=== PATIENT | male | born 1990 | race Caucasian/White ===

== ENCOUNTER 2016-11-08 22:38 | Emergency (ER) | payer OTHER, MEDICAID ==
[~2016-11-08] VITALS: Ht 188 cm; Wt 99.8 kg
[~2016-11-08 22:38] MED LIST: DM/P295L17 PO; HYDR-3326 PO; LEVO500T15 PO; METR500T PO; MULT-70 PO; OMEG500C3 PO
--- NOTE | 2016-11-08 23:18 | NUR ---
PT WALKED INTO ER C/O FLU LIKE SYMPTOMS AND SORE THROAT FOR ABOUT 1 WEEK.NOT GOING AWAY. PT IS ALERT, ORIENTED X 4, NO RESP DISTRESS NOTED OR REPORTED UPON ASSESSMENT... MD AT BEDSIDE...
--- NOTE | 2016-11-08 23:55 | NUR ---
Patient discharged to home in stable conditon. Written and verbal after care instructions given. Patient verbalizes understanding of instructions. pt walked out of ER unassisted with belongings at side...
== END 2016-11-09 00:39 | disposition home or self-care (01) ==
LOC: ER 22:40
DX: J20.9 Acute bronchitis, unspecified (principal); F10.20 Alcohol dependence, uncomplicated; Z88.6 Allergy status to analgesic agent
CPT/HCPCS: 99282; A4663

== ENCOUNTER 2016-12-23 19:49 | Emergency (ER) | payer OTHER, MEDICAID ==
[~2016-12-23] VITALS: Ht 188 cm; Wt 98.9 kg
[~2016-12-23 19:49] MED LIST changes: -LEVO500T15 PO; +LEVO500T2 PO; -MULT-70 PO; +MULT1TAB73 PO
[2016-12-23 20:30] LABS: BASOPHILS % (AUTO) 0.3 % (0.0-2.0); EOSINOPHILS # (AUTO) 0.1 K/uL (0.0-0.7); EOSINOPHILS % (AUTO) 0.5 % (0.0-7.0); HEMATOCRIT 39.2 % (40-50); HEMOGLOBIN 13.1 G/DL (14.0-18.0); LYMPHOCYTES # (AUTO) 0.4 K/UL (0.8-4.8); LYMPHOCYTES % (AUTO) 3.2 % (20.5-51.5); MEAN CORPUSCULAR HEMOGLOBIN 27.7 UUG (27.0-31.0); MEAN CORPUSCULAR HGB CONC 33 g/dL (32.0-37.0); MEAN CORPUSCULAR VOLUME 83.2 FL (82.0-92.0); MONOCYTES # (AUTO) 0.6 K/UL (0.1-1.30); MONOCYTES % (AUTO) 4.8 % (0.0-11.0); NEUTROPHILS # (AUTO) 11.3 K/UL (1.8-8.9); NEUTROPHILS % (AUTO) 91.2 % (38.5-71.5); PLATELET COUNT (AUTO) 390 K/UL (150-450); RED BLOOD CELL COUNT(AUTO) 4.71 MIL/UL (4.7-6.1); WHITE BLOOD COUNT (AUTO) 12.4 K/UL (4.0-11.2)
[2016-12-23 20:41] LABS: CREATININE 1.3 mg/dL (0.6-1.3)
[2016-12-23 20:44] LABS: BAND % (MANUAL) 15 % (0-10); LYMPHOCYTES % (MANUAL) 4 % (20-40); MONOCYTES % (MANUAL) 4 % (2-10); NEUTROPHILS % (MANUAL) 77 % (42-75)
[2016-12-23 20:47] LABS: BILIRUBIN,DIRECT 0.2 mg/dL (0.0-0.2); BILIRUBIN,TOTAL 0.8 mg/dL (0.2-1.0); TOTAL PROTEIN, SERUM 7.7 g/dL (6.4-8.2)
[2016-12-23 21:00] LABS: *BILIRUBIN,URIN NEGATIVE (NEGATIVE); *BLOOD, URINE Trace-lysed (NEGATIVE); *CLARITY,URINE CLEAR (CLEAR); *COLOR,URINE YELLOW (YELLOW); *KETONES,URINE NEGATIVE (NEGATIVE); *PROTEIN,URINE NEGATIVE (NEGATIVE); *UROBILINOGEN,URINE 0.2 E.U./dl (NORMAL); LEUKOCYTE ESTERASE ,URINE NEGATIVE (NEGATIVE); NITRITE, URINE NEGATIVE (NEGATIVE); UGLUCOSE NEGATIVE (NEGATIVE)
[2016-12-23] MEDS ORDERED: NORMAL SALINE FLUSH 10 ML DISP.SYRIN ONE (21:04)
[2016-12-23] MEDS ORDERED: IOHEXOL 300MG/ML 100 ML INFUS..BTL ONE (21:04)
[2016-12-23] MEDS ORDERED: IV NORMAL SALINE 250 ML IV ONE (21:04)
[2016-12-23 21:06] LABS: RBC,URINE 0-3 /HPF (0-3); WBC,URINE 0-3 /HPF (0-3)
--- NOTE | 2016-12-23 21:30 | NUR ---
PATIENT REFUSED TO HAVE CT. DR ROSARIO INTO SPEAK WITH PATIENT
--- NOTE | 2016-12-23 21:40 | NUR ---
PT REFUSED CT. MD ROSARIO IS AWARE
--- NOTE | 2016-12-23 22:37 | NUR ---
Patient discharged to home in stable conditon. Written and verbal after care instructions given. Patient verbalizes understanding of instructions. No further questions or concerns noted prior on leaving the ED.
[2016-12-23 22:38] VITALS: BP 108/55
== END 2016-12-23 22:39 | disposition home or self-care (01) ==
LOC: ER 19:53
DX: R50.9 Fever, unspecified (principal); K51.90 Ulcerative colitis, unspecified, without complications; F10.20 Alcohol dependence, uncomplicated; Z88.6 Allergy status to analgesic agent
CPT/HCPCS: 36415; 83690; 85025; 87040; 93005; A4663; J3490; J7030; J7050; Q9967

== ENCOUNTER 2017-04-29 01:31 | Emergency (ER) | payer MEDICAID, OTHER ==
[2017-04-29] MEDS ORDERED: KETOROLAC TROMETHAMINE 30 MG INJ ONE (03:11)
--- NOTE | 2017-04-29 03:50 | NUR ---
[facility]
--- NOTE | 2017-04-29 03:55 | NUR ---
Patient discharged to home in stable conditon. Written and verbal after care instructions given. Patient verbalizes understanding of instructions.
[2017-04-29 08:55] LABS: WHITE BLOOD COUNT (AUTO) 13.1 K/UL (4.0-11.2)
[2017-04-29 08:56] LABS: BASOPHILS % (AUTO) 1.4 % (0.0-2.0); EOSINOPHILS % (AUTO) 2.1 % (0.0-7.0); HEMATOCRIT 44.8 % (40-50); HEMOGLOBIN 14.4 G/DL (14.0-18.0); LYMPHOCYTES % (AUTO) 23.9 % (20.5-51.5); MEAN CORPUSCULAR HEMOGLOBIN 26.9 UUG (27.0-31.0); MEAN CORPUSCULAR HGB CONC 32 g/dL (32.0-37.0); MEAN CORPUSCULAR VOLUME 83.5 FL (82.0-92.0); MONOCYTES % (AUTO) 13.5 % (0.0-11.0); NEUTROPHILS # (AUTO) 7.7 K/UL (1.8-8.9); NEUTROPHILS % (AUTO) 59.1 % (38.5-71.5); PLATELET COUNT (AUTO) 434 K/UL (150-450); RED BLOOD CELL COUNT(AUTO) 5.37 MIL/UL (4.7-6.1)
[2017-04-29 08:57] LABS: BASOPHILS # (AUTO) 0.2 K/uL (0.0-8.0); EOSINOPHILS # (AUTO) 0.3 K/uL (0.0-0.7); LYMPHOCYTES # (AUTO) 3.1 K/UL (0.8-4.8); MONOCYTES # (AUTO) 1.8 K/UL (0.1-1.30)
[2017-04-29 09:04] LABS: BILIRUBIN,TOTAL 0.4 mg/dL (0.2-1.0); CREATININE 1.2 mg/dL (0.6-1.3); TOTAL PROTEIN, SERUM 8.5 g/dL (6.4-8.2)
[2017-04-29 10:07] LABS: BAND % (MANUAL) 3 % (0-10); EOSINOPHILS % (MANUAL) 2 % (0-8); LYMPHOCYTES % (MANUAL) 21 % (20-40); METAMYELOCYTES % 2 % (0-1); MONOCYTES % (MANUAL) 12 % (2-10); NEUTROPHILS % (MANUAL) 60 % (42-75)
[2017-04-29 15:38] LABS: *BILIRUBIN,URIN NEGATIVE (NEGATIVE); *BLOOD, URINE TRACE (NEGATIVE); *CLARITY,URINE CLEAR (CLEAR); *COLOR,URINE YELLOW (YELLOW); *KETONES,URINE NEGATIVE (NEGATIVE); *PROTEIN,URINE NEGATIVE (NEGATIVE); PH,URINE 6.5 (5.0-8.0); UGLUCOSE NEGATIVE (NEGATIVE)
[2017-04-29 15:39] LABS: *UROBILINOGEN,URINE 0.2 E.U./dl (NORMAL); BACTERIA,URINE NONE SEEN /HPF (NONE SEEN); LEUKOCYTE ESTERASE ,URINE NEGATIVE (NEGATIVE); NITRITE, URINE NEGATIVE (NEGATIVE); RBC,URINE 0-3 /HPF (0-3); SQUAMOUS EPITHELIAL CELL,UR FEW /HPF (NONE SEEN); WBC,URINE 0-3 /HPF (0-3)
[2017-05-03 13:09] LABS: *FECAL FAT NEUTRAL Normal (.); *FECAL FAT TOTAL Normal (.)
== END 2017-04-29 05:14 | disposition home or self-care (01) ==
LOC: ER 01:39
DX: N49.2 Inflammatory disorders of scrotum (principal); R19.7 Diarrhea, unspecified; Z88.6 Allergy status to analgesic agent; Z90.49 Acquired absence of other specified parts of digestive tract
CPT/HCPCS: 36415; 85025; 86625; 87046; 87086; A4663; J1885

== ENCOUNTER 2017-09-20 03:12 | Emergency (ER) | payer OTHER ==
[~2017-09-20] VITALS: Ht 188 cm; Wt 99.8 kg
--- NOTE | 2017-09-20 03:52 | NUR ---
DR JANNA MA MD AT BEDSIDE FOR MSE.
[2017-09-20] MEDS ORDERED: OXYCODONE/APAP 5-325 MG TABLET PO ONE (04:00)
[2017-09-20] MEDS ORDERED: OXYCODONE/APAP 5-325 MG TABLET ONE (04:03)
--- NOTE | 2017-09-20 04:06 | NUR ---
LAB AT PT BEDSIDE FOR BLOOD DRAW.
[2017-09-20 04:09] LABS: *BILIRUBIN,URIN NEGATIVE (NEGATIVE); *BLOOD, URINE 1+ (NEGATIVE); *CLARITY,URINE CLEAR (CLEAR); *COLOR,URINE YELLOW (YELLOW); *KETONES,URINE NEGATIVE (NEGATIVE); *PROTEIN,URINE 1+ (NEGATIVE); *UROBILINOGEN,URINE 0.2 E.U./dl (NORMAL); LEUKOCYTE ESTERASE ,URINE NEGATIVE (NEGATIVE); NITRITE, URINE NEGATIVE (NEGATIVE); UGLUCOSE NEGATIVE (NEGATIVE)
[2017-09-20 04:38] LABS: BACTERIA,URINE NONE SEEN /HPF (NONE SEEN); MUCUS,URINE FEW /LPF (0-FEW); SQUAMOUS EPITHELIAL CELL,UR FEW /HPF (NONE SEEN); WBC,URINE 0-3 /HPF (0-3)
[2017-09-20 04:40] LABS: CREATININE 1.1 mg/dL (0.6-1.3); POTASSIUM 3.7 mmol/L (3.5-5.1)
[2017-09-20 04:41] LABS: BASOPHILS # (AUTO) 0.1 K/uL (0.0-8.0); BASOPHILS % (AUTO) 0.6 % (0.0-2.0); EOSINOPHILS # (AUTO) 0.6 K/uL (0.0-0.7); HEMOGLOBIN 13.9 g/dL (12.5-16.3); LYMPHOCYTES # (AUTO) 3.2 K/uL (20.0-40.0); LYMPHOCYTES % (AUTO) 22.4 % (20.5-51.5); MEAN CORPUSCULAR HEMOGLOBIN 28.2 uug (23.8-33.4); MEAN CORPUSCULAR HGB CONC 34 g/dL (32.5-36.3); MEAN CORPUSCULAR VOLUME 83.1 fL (73.0-96.2); MONOCYTES # (AUTO) 1.5 K/uL (2.0-10.0); MONOCYTES % (AUTO) 10.8 % (0.0-11.0); NEUTROPHILS # (AUTO) 8.9 K/uL (1.8-8.9); NEUTROPHILS % (AUTO) 62.2 % (38.5-71.5); PLATELET COUNT (AUTO) 426 K/uL (152-348); RED BLOOD CELL COUNT(AUTO) 4.94 MIL/uL (4.06-5.63); WHITE BLOOD COUNT (AUTO) 14.3 K/uL (3.6-10.2)
[2017-09-20 04:46] LABS: BILIRUBIN,DIRECT 0.1 mg/dL (0.0-0.2); BILIRUBIN,TOTAL 0.4 mg/dL (0.2-1.0); TOTAL PROTEIN, SERUM 8.4 g/dL (6.4-8.2)
[2017-09-20] MEDS ORDERED: KETOROLAC TROMETHAMINE 30 MG INJ ONE (05:26)
[2017-09-20] MEDS ORDERED: KETOROLAC TROMETHAMINE 30 MG INJ IM ONE (05:30)
--- NOTE | 2017-09-20 05:48 | NUR ---
Patient discharged to home in stable conditon. Written and verbal after care instructions given. Patient verbalizes understanding of instructions. Pt denies pain at this time.
[2017-09-20 05:51] VITALS: BP 140/84
== END 2017-09-20 05:55 | disposition home or self-care (01) ==
LOC: ER 03:14
DX: K62.89 Other specified diseases of anus and rectum (principal); G89.29 Other chronic pain; R10.31 Right lower quadrant pain; Z88.5 Allergy status to narcotic agent; Z79.2 Long term (current) use of antibiotics; Z79.891 Long term (current) use of opiate analgesic; Z79.899 Other long term (current) drug therapy
CPT/HCPCS: 36415; 85025; 86625; 87046; A4663; J1885

== ENCOUNTER 2017-11-22 20:28 | Emergency (ER) | payer OTHER ==
[~2017-11-22] VITALS: Ht 188 cm; Wt 90.7 kg
--- NOTE | 2017-11-22 21:20 | NUR ---
Patient is AAOx4. Able to make needs known. Responsive to verbal and tactile stimuli. Speach is clear. Patient has c/o ABD pain ( Hx of UC w/ J-pouch to RLQ). This is a chronic issue for the patient. Patient also punched a wall with his R hand, pain noted throughout the hand. ER MD evaluated patient at this time.
--- NOTE | 2017-11-22 21:30 | NUR ---
Xray at bedside
--- NOTE | 2017-11-22 21:54 | NUR ---
Patient discharged to home in stable conditon. Written and verbal after care instructions given. Patient verbalizes understanding of instructions. Ambulated from ER with stable gait. All belongings with patient. VSS.
[2017-11-22 21:56] VITALS: BP 123/85
== END 2017-11-22 21:58 | disposition home or self-care (01) ==
LOC: ER 20:30
DX: S60.221A Contusion of right hand, initial encounter (principal); G89.29 Other chronic pain; A04.72 Enterocolitis due to Clostridium difficile, not specified as recurrent; K51.90 Ulcerative colitis, unspecified, without complications; Z88.5 Allergy status to narcotic agent; W22.01XA Walked into wall, initial encounter; Y93.89 Activity, other specified; Y92.89 Other specified places as the place of occurrence of the external cause; Y99.8 Other external cause status
CPT/HCPCS: 73130; A4663

== ENCOUNTER 2018-01-09 00:29 | Emergency (ER) | payer OTHER ==
[~2018-01-09] VITALS: Ht 188 cm; Wt 102.1 kg
--- NOTE | 2018-01-09 01:22 | NUR ---
Dr. Ramirez at bedside for MSE.
[2018-01-09] MEDS ORDERED: HYDROMORPHONE 1 MG/1 ML DISP.SYRIN IV ONE (01:40)
[2018-01-09] MEDS ORDERED: IV NS 1000 ML 1,000 ML IV ONE (01:45)
[2018-01-09] MEDS ORDERED: HYDROMORPHONE 2 MG/1 ML DISP.SYRIN ONE (02:03)
[2018-01-09 02:45] LABS: BASOPHILS % (AUTO) 0.4 % (0.0-2.0); EOSINOPHILS # (AUTO) 0.6 K/uL (0.0-0.7); EOSINOPHILS % (AUTO) 5.1 % (0.0-7.0); HEMATOCRIT 42.8 % (36.7-47.1); HEMOGLOBIN 14.3 g/dL (12.5-16.3); LYMPHOCYTES # (AUTO) 2.8 K/uL (20.0-40.0); LYMPHOCYTES % (AUTO) 25.4 % (20.5-51.5); MEAN CORPUSCULAR HEMOGLOBIN 27.2 uug (23.8-33.4); MEAN CORPUSCULAR HGB CONC 33 g/dL (32.5-36.3); MEAN CORPUSCULAR VOLUME 81.5 fL (73.0-96.2); MONOCYTES # (AUTO) 0.9 K/uL (2.0-10.0); MONOCYTES % (AUTO) 8.2 % (0.0-11.0); NEUTROPHILS # (AUTO) 6.8 K/uL (1.8-8.9); NEUTROPHILS % (AUTO) 60.9 % (38.5-71.5); PLATELET COUNT (AUTO) 403 K/uL (152-348); RED BLOOD CELL COUNT(AUTO) 5.25 MIL/uL (4.06-5.63); WHITE BLOOD COUNT (AUTO) 11.1 K/uL (3.6-10.2)
[2018-01-09 02:50] LABS: CREATININE 1.1 mg/dL (0.6-1.3); POTASSIUM 3.6 mmol/L (3.5-5.1)
--- NOTE | 2018-01-09 02:52 | NUR ---
Pt states pain is coming back abdominal pain 12/19. MD notified.
[2018-01-09 02:54] LABS: BILIRUBIN,TOTAL 0.4 mg/dL (0.2-1.0); TOTAL PROTEIN, SERUM 9.4 g/dL (6.4-8.2)
--- NOTE | 2018-01-09 03:35 | NUR ---
Patient discharged to home in stable conditon. Written and verbal after care instructions given. Patient verbalizes understanding of instructions. Patient ambulated out of ER with steady gait, no acute signs of distress, VSS, all belongings taken, IV site discontinued.
[2018-01-09 03:36] LABS: *BILIRUBIN,URIN NEGATIVE (NEGATIVE); *BLOOD, URINE Trace-lysed (NEGATIVE); *CLARITY,URINE CLEAR (CLEAR); *COLOR,URINE YELLOW (YELLOW); *KETONES,URINE NEGATIVE (NEGATIVE); *PROTEIN,URINE NEGATIVE (NEGATIVE); *UROBILINOGEN,URINE 0.2 E.U./dl (NORMAL); LEUKOCYTE ESTERASE ,URINE NEGATIVE (NEGATIVE); NITRITE, URINE NEGATIVE (NEGATIVE); UGLUCOSE NEGATIVE (NEGATIVE)
[2018-01-09 03:59] VITALS: BP 139/98
[2018-01-09 04:01] LABS: BACTERIA,URINE NONE SEEN /HPF (NONE SEEN); RBC,URINE 0-3 /HPF (0-3); SQUAMOUS EPITHELIAL CELL,UR FEW /HPF (NONE SEEN); WBC,URINE 0-3 /HPF (0-3)
[2018-01-09 04:02] LABS: MUCUS,URINE FEW /LPF (0-FEW)
== END 2018-01-09 03:35 | disposition home or self-care (01) ==
LOC: ER 00:31
DX: K51.90 Ulcerative colitis, unspecified, without complications (principal); G89.29 Other chronic pain; R10.9 Unspecified abdominal pain; Z88.6 Allergy status to analgesic agent
CPT/HCPCS: 36415; 83690; 85025; 87046; 87177; 89055; A4663; J1170; J7030

== ENCOUNTER 2018-01-24 23:28 | Emergency (ER) | payer OTHER ==
[~2018-01-24] VITALS: Ht 188 cm; Wt 102.1 kg
--- NOTE | 2018-01-24 23:58 | NUR ---
DR LIZZIE MA MD AT BEDSIDE FOR MSE. PT C/O CHRONIC ABD PAIN, EHICH HAS BEEN GETTING WORSE OVER THE PAST 3 DAYS. ALSO C/O RECTAL PAIN. DENIES N/V AT THIS TIME.
[2018-01-25] MEDS ORDERED: DICYCLOMINE HCL 20 MG/2 ML AMPUL IM SCH (00:45)
[2018-01-25] MEDS ORDERED: MORPHINE SULFATE 2 MG/1 ML DISP.SYRIN ONE (00:56)
[2018-01-25] MEDS ORDERED: MORPHINE SULFATE 4 MG/1 ML DISP.SYRIN ONE (00:56)
--- NOTE | 2018-01-25 00:58 | NUR ---
Patient discharged to home in stable conditon. Written and verbal after care instructions given. Patient verbalizes understanding of instructions. Pt ambulated from ER w/ steady gait. No acute distress noted. Pt took all personal belongings.
[2018-01-25 01:00] VITALS: BP 124/84
[2018-01-25] MEDS ORDERED: MORPHINE SULFATE 4 MG/1 ML DISP.SYRIN IM ONE (01:00)
== END 2018-01-25 01:00 | disposition home or self-care (01) ==
LOC: ER 23:32
DX: K52.9 Noninfective gastroenteritis and colitis, unspecified (principal); Z88.5 Allergy status to narcotic agent; Z90.49 Acquired absence of other specified parts of digestive tract
CPT/HCPCS: 87493; 96372; 99283; A4663; J2270 ×2

== ENCOUNTER 2018-03-17 23:31 | Emergency (ER) | payer OTHER ==
[~2018-03-17] VITALS: Ht 188 cm; Wt 99.8 kg
[2018-03-18] MEDS ORDERED: HYDROMORPHONE 1 MG/1 ML DISP.SYRIN IV ONE (00:15)
[2018-03-18] MEDS ORDERED: ONDANSETRON 4 MG/2 ML VIAL IV ONE (00:15)
[2018-03-18] MEDS ORDERED: IV NORMAL SALINE 1000 ML BAG IV ONE (00:15)
[2018-03-18 00:16] LABS: *BILIRUBIN,URIN NEGATIVE (NEGATIVE); *BLOOD, URINE Trace-lysed (NEGATIVE); *CLARITY,URINE CLEAR (CLEAR); *COLOR,URINE YELLOW (YELLOW); *KETONES,URINE NEGATIVE (NEGATIVE); *PROTEIN,URINE NEGATIVE (NEGATIVE); *UROBILINOGEN,URINE 0.2 E.U./dl (NORMAL); LEUKOCYTE ESTERASE ,URINE NEGATIVE (NEGATIVE); NITRITE, URINE NEGATIVE (NEGATIVE); UGLUCOSE NEGATIVE (NEGATIVE)
--- NOTE | 2018-03-18 00:20 | NUR ---
WENT FOR CT OF THE ABDOMEN VIA W/C .
[2018-03-18 00:34] LABS: BACTERIA,URINE FEW /HPF (NONE SEEN); SQUAMOUS EPITHELIAL CELL,UR NONE SEEN /HPF (NONE SEEN); WBC,URINE 0-3 /HPF (0-3)
[2018-03-18 00:39] LABS: BASOPHILS # (AUTO) 0.1 K/uL (0.0-8.0); BASOPHILS % (AUTO) 0.5 % (0.0-2.0); EOSINOPHILS # (AUTO) 0.6 K/uL (0.0-0.7); HEMATOCRIT 38.2 % (36.7-47.1); HEMOGLOBIN 12.9 g/dL (12.5-16.3); LYMPHOCYTES # (AUTO) 2.7 K/uL (20.0-40.0); LYMPHOCYTES % (AUTO) 25.7 % (20.5-51.5); MEAN CORPUSCULAR HEMOGLOBIN 27.5 uug (23.8-33.4); MEAN CORPUSCULAR HGB CONC 34 g/dL (32.5-36.3); MEAN CORPUSCULAR VOLUME 81.2 fL (73.0-96.2); MONOCYTES % (AUTO) 9.1 % (0.0-11.0); NEUTROPHILS # (AUTO) 6.2 K/uL (1.8-8.9); NEUTROPHILS % (AUTO) 58.7 % (38.5-71.5); PLATELET COUNT (AUTO) 420 K/uL (152-348); WHITE BLOOD COUNT (AUTO) 10.5 K/uL (3.6-10.2)
[2018-03-18 00:58] LABS: BILIRUBIN,DIRECT 0.1 mg/dL (0.0-0.2); BILIRUBIN,TOTAL 0.3 mg/dL (0.2-1.0); CREATININE 1.2 mg/dL (0.6-1.3); POTASSIUM 3.7 mmol/L (3.5-5.1); TOTAL PROTEIN, SERUM 8.1 g/dL (6.4-8.2)
--- NOTE | 2018-03-18 01:02 | NUR ---
GIVEN PAIN MEDICATION C/O ABDOMENAL PAIN .
[2018-03-18] MEDS ORDERED: HYDROMORPHONE 2 MG/1 ML DISP.SYRIN ONE (01:03)
[2018-03-18] MEDS ORDERED: ONDANSETRON 4 MG/2 ML VIAL ONE (01:03)
--- NOTE | 2018-03-18 02:19 | NUR ---
Patient discharged to home in stable conditon. Written and verbal after care instructions given. Patient verbalizes understanding of instructions.PATIENT AMBULATED OUT OF ER WITH STEADY GAIT. V/S WNL, NO RESPIRATORY DISTRESS. NO FALL NOTED . ALL BELONGINGS TAKEN .PRESCRIPTION GIVEN AND VERBALIZED UNDERSTANDING . LAB RESULTS GIVEN AND SUMMARY GIVEN .
[2018-03-18 02:27] VITALS: BP 117/90
== END 2018-03-18 02:28 | disposition home or self-care (01) ==
LOC: ER 23:34
DX: K51.90 Ulcerative colitis, unspecified, without complications (principal); G89.29 Other chronic pain; R10.9 Unspecified abdominal pain; Z88.5 Allergy status to narcotic agent; Z90.89 Acquired absence of other organs
CPT/HCPCS: 36415; 74021; 80048; 80076; 81001; 83690; 85025; 96374; 96375; 99285; A4663; J1170; J2405; J7030

== ENCOUNTER 2018-05-03 00:06 | Emergency (ER) | payer OTHER ==
[~2018-05-03] VITALS: Ht 188 cm; Wt 97.5 kg
[2018-05-03] MEDS ORDERED: ONDANSETRON 4 MG/2 ML VIAL IV ONE (00:45)
[2018-05-03] MEDS ORDERED: IV NORMAL SALINE 1000 ML BAG IV ONE (00:45)
[2018-05-03] MEDS ORDERED: ONDANSETRON 4 MG/2 ML VIAL ONE ×2 (01:40→01:59)
[2018-05-03 01:43] LABS: BASOPHILS # (AUTO) 0.1 K/uL (0.0-8.0); BASOPHILS % (AUTO) 0.7 % (0.0-2.0); EOSINOPHILS # (AUTO) 0.5 K/uL (0.0-0.7); EOSINOPHILS % (AUTO) 5.4 % (0.0-7.0); HEMATOCRIT 42.6 % (36.7-47.1); HEMOGLOBIN 14.2 g/dL (12.5-16.3); LYMPHOCYTES # (AUTO) 3.1 K/uL (20.0-40.0); LYMPHOCYTES % (AUTO) 33.1 % (20.5-51.5); MEAN CORPUSCULAR HEMOGLOBIN 27.2 uug (23.8-33.4); MEAN CORPUSCULAR HGB CONC 33 g/dL (32.5-36.3); MEAN CORPUSCULAR VOLUME 81.6 fL (73.0-96.2); MONOCYTES # (AUTO) 0.9 K/uL (2.0-10.0); MONOCYTES % (AUTO) 9.7 % (0.0-11.0); NEUTROPHILS # (AUTO) 4.7 K/uL (1.8-8.9); NEUTROPHILS % (AUTO) 51.1 % (38.5-71.5); PLATELET COUNT (AUTO) 356 K/uL (152-348); RED BLOOD CELL COUNT(AUTO) 5.23 MIL/uL (4.06-5.63); WHITE BLOOD COUNT (AUTO) 9.2 K/uL (3.6-10.2)
[2018-05-03] MEDS ORDERED: IV NORMAL SALINE 500 ML BAG IV ONE (01:45)
[2018-05-03] MEDS ORDERED: ONDANSETRON IV *ER 4 MG/2 ML VIAL IV ONE (01:45)
[2018-05-03] MEDS ORDERED: HYDROMORPHONE 1 MG/1 ML DISP.SYRIN IV ONE ×2 (01:45→03:00)
[2018-05-03 01:55] LABS: *BILIRUBIN,URIN NEGATIVE (NEGATIVE); *BLOOD, URINE NEGATIVE (NEGATIVE); *CLARITY,URINE CLEAR (CLEAR); *COLOR,URINE YELLOW (YELLOW); *KETONES,URINE NEGATIVE (NEGATIVE); *PROTEIN,URINE NEGATIVE (NEGATIVE); *UROBILINOGEN,URINE 0.2 E.U./dl (NORMAL); LEUKOCYTE ESTERASE ,URINE NEGATIVE (NEGATIVE); NITRITE, URINE NEGATIVE (NEGATIVE); UGLUCOSE NEGATIVE (NEGATIVE)
[2018-05-03 01:58] LABS: BACTERIA,URINE NONE SEEN /HPF (NONE SEEN); RBC,URINE NONE SEEN /HPF (0-3); SQUAMOUS EPITHELIAL CELL,UR NONE SEEN /HPF (NONE SEEN); WBC,URINE 0-3 /HPF (0-3)
[2018-05-03] MEDS ORDERED: HYDROMORPHONE 1 MG/1 ML DISP.SYRIN ONE ×2 (01:59→02:58)
[2018-05-03 02:00] LABS: POTASSIUM 3.4 mmol/L (3.5-5.1)
[2018-05-03 02:06] LABS: BILIRUBIN,DIRECT 0.1 mg/dL (0.0-0.2); BILIRUBIN,TOTAL 0.3 mg/dL (0.2-1.0); TOTAL PROTEIN, SERUM 8.6 g/dL (6.4-8.2)
--- NOTE | 2018-05-03 04:01 | NUR ---
Patient discharged to home in stable conditon. Written and verbal after care instructions given. Patient verbalizes understanding of instructions. PO Challenge well tolerated. Pt ambulated out of ER in steady gait. All belongings with pt. VSS. NAD noted.
--- NOTE | 2018-05-03 04:01 | NUR ---
IV removed. Catheter intact and site benign. Pressure and 4x4 gauze applied to site. No bleeding noted.
[2018-05-03 04:03] VITALS: BP 128/79
== END 2018-05-03 04:04 | disposition home or self-care (01) ==
LOC: ER 00:09
DX: G89.29 Other chronic pain (principal); R10.84 Generalized abdominal pain; K51.90 Ulcerative colitis, unspecified, without complications; Z88.5 Allergy status to narcotic agent
CPT/HCPCS: 36415; 74021; 80048; 80076; 81001; 83605; 83690; 85025; 85651; 85730; 96374; 96375; 96376; 99285; J1170 ×2; J2405; A4663; J7030

== ENCOUNTER 2018-07-03 00:53 | Emergency (ER) | payer OTHER ==
[~2018-07-03] VITALS: Ht 188 cm; Wt 98.9 kg
[2018-07-03] MEDS ORDERED: ONDANSETRON ODT 4 MG TAB.RAPDIS SL ONE (01:45)
[2018-07-03] MEDS ORDERED: OXYCODONE/APAP 5-325 MG TABLET PO ONE (01:45)
[2018-07-03] MEDS ORDERED: ONDANSETRON ODT 4 MG TAB.RAPDIS ONE (01:46)
[2018-07-03] MEDS ORDERED: OXYCODONE/APAP 5-325 MG TABLET ONE (01:47)
--- NOTE | 2018-07-03 01:51 | NUR ---
Pt. ambulated into ED w/ c/o pain to abdominal area occasional pain to upper thorax and nausea, per pt. has hx of colonectomy 11 years ago, BS active x 4, abdomen soft/round/tender to touch, chronic diarrhea, no vomiting, no blood in stool, no CASTELLANO/F/C
[2018-07-03 02:03] LABS: BASOPHILS # (AUTO) 0.1 K/uL (0.0-8.0); BASOPHILS % (AUTO) 0.4 % (0.0-2.0); EOSINOPHILS # (AUTO) 0.5 K/uL (0.0-0.7); EOSINOPHILS % (AUTO) 3.5 % (0.0-7.0); HEMOGLOBIN 14.3 g/dL (12.5-16.3); LYMPHOCYTES # (AUTO) 2.4 K/uL (20.0-40.0); LYMPHOCYTES % (AUTO) 18.3 % (20.5-51.5); MEAN CORPUSCULAR HEMOGLOBIN 27.3 uug (23.8-33.4); MEAN CORPUSCULAR HGB CONC 34 g/dL (32.5-36.3); MEAN CORPUSCULAR VOLUME 80.3 fL (73.0-96.2); MONOCYTES # (AUTO) 1.1 K/uL (2.0-10.0); MONOCYTES % (AUTO) 8.6 % (0.0-11.0); NEUTROPHILS # (AUTO) 9.1 K/uL (1.8-8.9); NEUTROPHILS % (AUTO) 69.2 % (38.5-71.5); PLATELET COUNT (AUTO) 396 K/uL (152-348); RED BLOOD CELL COUNT(AUTO) 5.23 MIL/uL (4.06-5.63); WHITE BLOOD COUNT (AUTO) 13.2 K/uL (3.6-10.2)
[2018-07-03 02:11] LABS: BILIRUBIN,DIRECT 0.1 mg/dL (0.0-0.2); BILIRUBIN,TOTAL 0.5 mg/dL (0.2-1.0); POTASSIUM 3.3 mmol/L (3.5-5.1); TOTAL PROTEIN, SERUM 8.4 g/dL (6.4-8.2)
--- NOTE | 2018-07-03 02:51 | NUR ---
Patient discharged to home in stable conditon. Written and verbal after care instructions given. Patient verbalizes understanding of instructions. Pt. d/c w/ prescription per MD order, d/c papers signed, all belongings taken w/ pt., ambulated out w/ steady gait, no acute distress,
== END 2018-07-03 02:56 | disposition home or self-care (01) ==
LOC: ER 00:54
DX: G89.29 Other chronic pain (principal); R10.9 Unspecified abdominal pain; Z88.5 Allergy status to narcotic agent
CPT/HCPCS: 36415; 71045; 74021; 83690; 84443; 85025; 93005; A4663; Q0162

== ENCOUNTER 2018-10-10 20:30 | Emergency (ER) | payer OTHER ==
[~2018-10-10] VITALS: Ht 188 cm; Wt 99.8 kg
[2018-10-10] MEDS ORDERED: HYDROCODONE/APAP 10-325 MG TABLET ONE (21:00)
[2018-10-10] MEDS ORDERED: METRONIDAZOLE 500 MG TABLET PO ONE (21:00)
[2018-10-10] MEDS ORDERED: DIPHENOXYLATE HCL/ATROP SULF TABLET PO ONE (21:00)
[2018-10-10] MEDS ORDERED: DIPHENOXYLATE HCL/ATROP SULF TABLET ONE (21:00)
[2018-10-10] MEDS ORDERED: HYDROCODONE/APAP 10-325 MG TABLET PO ONE (21:00)
[2018-10-10] MEDS ORDERED: METRONIDAZOLE 500 MG TABLET ONE (21:00)
[2018-10-10 21:12] LABS: BASOPHILS % (AUTO) 0.3 % (0.0-2.0); EOSINOPHILS # (AUTO) 0.2 K/uL (0.0-0.7); EOSINOPHILS % (AUTO) 0.9 % (0.0-7.0); HEMATOCRIT 38.6 % (36.7-47.1); HEMOGLOBIN 12.6 g/dL (12.5-16.3); LYMPHOCYTES # (AUTO) 0.9 K/uL (20.0-40.0); LYMPHOCYTES % (AUTO) 4.4 % (20.5-51.5); MEAN CORPUSCULAR HEMOGLOBIN 25.8 uug (23.8-33.4); MEAN CORPUSCULAR HGB CONC 33 g/dL (32.5-36.3); MEAN CORPUSCULAR VOLUME 79.5 fL (73.0-96.2); MONOCYTES # (AUTO) 1.5 K/uL (2.0-10.0); MONOCYTES % (AUTO) 7.8 % (0.0-11.0); NEUTROPHILS # (AUTO) 16.9 K/uL (1.8-8.9); NEUTROPHILS % (AUTO) 86.6 % (38.5-71.5); PLATELET COUNT (AUTO) 404 K/uL (152-348); RED BLOOD CELL COUNT(AUTO) 4.86 MIL/uL (4.06-5.63); WHITE BLOOD COUNT (AUTO) 19.5 K/uL (3.6-10.2)
[2018-10-10 21:23] LABS: CREATININE 1.2 mg/dL (0.6-1.3); POTASSIUM 3.8 mmol/L (3.5-5.1)
[2018-10-10 21:28] LABS: BILIRUBIN,DIRECT 0.2 mg/dL (0.0-0.2); BILIRUBIN,TOTAL 0.7 mg/dL (0.2-1.0); TOTAL PROTEIN, SERUM 8.3 g/dL (6.4-8.2)
--- NOTE | 2018-10-10 22:26 | NUR ---
Patient discharged to home in stable conditon. Written and verbal after care instructions given. Patient verbalizes understanding of instructions. WALKED OUT OF ER WITH NO DISTRESS NOTED
[2018-10-10 22:27] VITALS: BP 120/80
== END 2018-10-10 22:28 | disposition home or self-care (01) ==
LOC: ER 20:30
DX: G89.29 Other chronic pain (principal); R10.84 Generalized abdominal pain; R19.7 Diarrhea, unspecified; Z88.5 Allergy status to narcotic agent; Z90.49 Acquired absence of other specified parts of digestive tract
CPT/HCPCS: 36415; 83690; 85025; A4663

== ENCOUNTER 2018-10-18 01:09 | Emergency (ER) | payer OTHER ==
[~2018-10-18] VITALS: Ht 188 cm; Wt 99.8 kg
--- NOTE | 2018-10-18 01:53 | NUR ---
ANIL VALE at bedside for patient evaluation.
[2018-10-18] MEDS: METRONIDAZOLE 500 MG TABLET PO ONE (02:04)
[2018-10-18] MEDS ORDERED: METRONIDAZOLE 500 MG TABLET ONE (02:05)
--- NOTE | 2018-10-18 02:05 | NUR ---
Patient discharged to home in stable conditon. Written and verbal after care instructions given. Patient verbalizes understanding of instructions. AMbulated from ER with stable gait. All belogings with patient. VSS
[2018-10-18 02:06] VITALS: BP 151/78
== END 2018-10-18 02:06 | disposition home or self-care (01) ==
LOC: ER 01:11
DX: B96.89 Other specified bacterial agents as the cause of diseases classified elsewhere (principal); Z76.0 Encounter for issue of repeat prescription; Z90.49 Acquired absence of other specified parts of digestive tract; Z88.5 Allergy status to narcotic agent
CPT/HCPCS: A4663

== ENCOUNTER 2018-11-09 20:49 | Emergency (ER) | payer OTHER ==
[~2018-11-09] VITALS: Ht 188 cm; Wt 104.3 kg
[2018-11-09] MEDS ORDERED: [UNRECOGNIZED DRUG - OTHER] (21:01)
[2018-11-09] MEDS ORDERED: MULT-1119 PO (21:01)
[2018-11-09] MEDS ORDERED: METRONIDAZOLE 500 MG TABLET PO ONE (21:15)
[2018-11-09] MEDS ORDERED: IV NORMAL SALINE 1000 ML BAG IV ONE (21:15)
[2018-11-09 21:40] LABS: BASOPHILS % (AUTO) 0.4 % (0.0-2.0); EOSINOPHILS % (AUTO) 0.1 % (0.0-7.0); HEMATOCRIT 39.2 % (36.7-47.1); HEMOGLOBIN 13.1 g/dL (12.5-16.3); LYMPHOCYTES % (AUTO) 7.8 % (20.5-51.5); MEAN CORPUSCULAR HGB CONC 34 g/dL (32.5-36.3); MEAN CORPUSCULAR VOLUME 80.4 fL (73.0-96.2); MONOCYTES # (AUTO) 1.2 K/uL (2.0-10.0); MONOCYTES % (AUTO) 9.9 % (0.0-11.0); NEUTROPHILS # (AUTO) 10.3 K/uL (1.8-8.9); NEUTROPHILS % (AUTO) 81.8 % (38.5-71.5); PLATELET COUNT (AUTO) 306 K/uL (152-348); RED BLOOD CELL COUNT(AUTO) 4.88 MIL/uL (4.06-5.63); WHITE BLOOD COUNT (AUTO) 12.6 K/uL (3.6-10.2)
[2018-11-09] MEDS ORDERED: ACETAMINOPHEN ES 500 MG TABLET ONE (21:40)
[2018-11-09 21:57] LABS: CREATININE 1.1 mg/dL (0.6-1.3)
[2018-11-09 22:03] LABS: BILIRUBIN,DIRECT 0.2 mg/dL (0.0-0.2); BILIRUBIN,TOTAL 0.6 mg/dL (0.1-1.0)
--- NOTE | 2018-11-09 22:06 | NUR ---
Patient refusing to take Flagyl, requesting to wait for results to publish.
[2018-11-09] MEDS ORDERED: ACETAMINOPHEN ES 500 MG TABLET PO ONE (22:15)
[2018-11-09 23:01] LABS: *BILIRUBIN,URIN NEGATIVE (NEGATIVE); *BLOOD, URINE 1+ (NEGATIVE); *CLARITY,URINE CLEAR (CLEAR); *COLOR,URINE YELLOW (YELLOW); *KETONES,URINE NEGATIVE (NEGATIVE); *UROBILINOGEN,URINE 0.2 E.U./dl (NORMAL); LEUKOCYTE ESTERASE ,URINE NEGATIVE (NEGATIVE); NITRITE, URINE NEGATIVE (NEGATIVE); UGLUCOSE NEGATIVE (NEGATIVE)
[2018-11-09 23:10] LABS: BACTERIA,URINE NONE SEEN /HPF (NONE SEEN); SQUAMOUS EPITHELIAL CELL,UR NONE SEEN /HPF (NONE SEEN); WBC,URINE NONE SEEN /HPF (0-3)
--- NOTE | 2018-11-09 23:22 | NUR ---
Patient discharged to home in stable conditon. Written and verbal after care instructions given. Patient verbalizes understanding of instructions. Patient ambulated with stable gait.
== END 2018-11-09 23:30 | disposition home or self-care (01) ==
LOC: ER 20:49
DX: R19.7 Diarrhea, unspecified (principal); R00.0 Tachycardia, unspecified; R51 Headache; R30.0 Dysuria; Z88.5 Allergy status to narcotic agent; Z79.899 Other long term (current) drug therapy
CPT/HCPCS: 36415; 83690; 85025; 87040; 93005; A4663; A9150; J7030

== ENCOUNTER 2018-12-24 21:16 | Emergency (ER) | payer OTHER ==
[~2018-12-24] VITALS: Ht 188 cm; Wt 102.1 kg
[~2018-12-24 21:16] MED LIST changes: -DM/P295L17 PO; -HYDR-3326 PO; -LEVO500T2 PO; -METR500T PO; +MULT-1119 PO; -MULT1TAB73 PO; -OMEG500C3 PO; +[UNRECOGNIZED DRUG - OTHER]
[2018-12-24 21:54] LABS: BASOPHILS % (AUTO) 0.5 % (0.0-2.0); EOSINOPHILS % (AUTO) 0.4 % (0.0-7.0); HEMATOCRIT 42.7 % (36.7-47.1); HEMOGLOBIN 14.2 g/dL (12.5-16.3); LYMPHOCYTES # (AUTO) 1.5 K/uL (20.0-40.0); MEAN CORPUSCULAR HEMOGLOBIN 26.5 uug (23.8-33.4); MEAN CORPUSCULAR HGB CONC 33 g/dL (32.5-36.3); MEAN CORPUSCULAR VOLUME 79.9 fL (73.0-96.2); MONOCYTES # (AUTO) 0.9 K/uL (2.0-10.0); MONOCYTES % (AUTO) 9.3 % (0.0-11.0); NEUTROPHILS # (AUTO) 7.7 K/uL (1.8-8.9); NEUTROPHILS % (AUTO) 74.8 % (38.5-71.5); PLATELET COUNT (AUTO) 417 K/uL (152-348); RED BLOOD CELL COUNT(AUTO) 5.35 MIL/uL (4.06-5.63); WHITE BLOOD COUNT (AUTO) 10.2 K/uL (3.6-10.2)
[2018-12-24] MEDS ORDERED: HYDROMORPHONE 1 MG/1 ML DISP.SYRIN ONE (21:56)
[2018-12-24] MEDS ORDERED: ONDANSETRON 4 MG/2 ML VIAL ONE ×2 (21:56→23:03)
[2018-12-24] MEDS: IV NORMAL SALINE 1000 ML BAG IV ONE (21:57)
[2018-12-24] MEDS: HYDROMORPHONE 1 MG/1 ML DISP.SYRIN IV ONE ×2 (21:58→23:10)
[2018-12-24] MEDS: ONDANSETRON 4 MG/2 ML VIAL IV ONE (21:58)
[2018-12-24 22:00] LABS: CREATININE 1.1 mg/dL (0.6-1.3); POTASSIUM 4.1 mmol/L (3.5-5.1)
[2018-12-24 22:12] LABS: BILIRUBIN,DIRECT 0.1 mg/dL (0.0-0.2); BILIRUBIN,TOTAL 0.7 mg/dL (0.2-1.0); TOTAL PROTEIN, SERUM 9.2 g/dL (6.4-8.2)
[2018-12-24 22:32] LABS: *BILIRUBIN,URIN NEGATIVE (NEGATIVE); *CLARITY,URINE CLEAR (CLEAR); *COLOR,URINE LIGHT YELLOW (YELLOW); *KETONES,URINE NEGATIVE (NEGATIVE); *UROBILINOGEN,URINE 0.2 E.U./dl (NORMAL); LEUKOCYTE ESTERASE ,URINE NEGATIVE (NEGATIVE); NITRITE, URINE NEGATIVE (NEGATIVE); PH,URINE 6.5 (5.0-8.0); UGLUCOSE NEGATIVE (NEGATIVE)
[2018-12-24 22:33] LABS: *BLOOD, URINE TRACE (NEGATIVE)
[2018-12-24 22:41] LABS: RBC,URINE 0-3 /HPF (0-3); WBC,URINE NONE SEEN /HPF (0-3)
[2018-12-24] MEDS ORDERED: HYDROMORPHONE 2 MG/1 ML DISP.SYRIN ONE (23:02)
[2018-12-24] MEDS: ONDANSETRON IV *ER 4 MG/2 ML VIAL IV ONE (23:10)
--- NOTE | 2018-12-24 23:33 | NUR ---
DR CORONADO MADE PATIENT AWARE OF TEST RESULTS WILL DC HOME.
--- NOTE | 2018-12-24 23:34 | NUR ---
IV HL DC ON RT AC.
[2018-12-24 23:35] VITALS: BP 125/85
--- NOTE | 2018-12-30 14:40 | NUR ---
LATE ENTRY: 12/24/18 NS 1000ML IV BOLUS WAS COMPLETED IN FULL AT 2300.
== END 2018-12-24 23:39 | disposition home or self-care (01) ==
LOC: ER 21:19
DX: K50.90 Crohn's disease, unspecified, without complications (principal); R19.7 Diarrhea, unspecified; Z88.5 Allergy status to narcotic agent; Z79.899 Other long term (current) drug therapy; Z90.49 Acquired absence of other specified parts of digestive tract
CPT/HCPCS: 36415; 71045; 74176; 80048; 80076; 81000; 81001; 82378; 83690; 85025; 96361; 96374; 96375; 96376; 99284; J1170; J2405 ×2; A4663

== ENCOUNTER 2019-03-06 00:22 | Emergency (ER) | payer OTHER ==
[~2019-03-06] VITALS: Ht 188 cm; Wt 99.8 kg
--- NOTE | 2019-03-06 00:40 | NUR ---
Dr. Rose at bedside for MSE.
[2019-03-06] MEDS ORDERED: OXYCODONE/APAP 5-325 MG TABLET PO ONE (00:45)
[2019-03-06] MEDS ORDERED: OXYCODONE/APAP 5-325 MG TABLET ONE (00:49)
--- NOTE | 2019-03-06 00:50 | NUR ---
Xray at bedside.
[2019-03-06 01:09] LABS: BASOPHILS # (AUTO) 0.1 K/uL (0.0-8.0); BASOPHILS % (AUTO) 0.5 % (0.0-2.0); EOSINOPHILS # (AUTO) 0.7 K/uL (0.0-0.7); EOSINOPHILS % (AUTO) 4.4 % (0.0-7.0); HEMATOCRIT 36.7 % (36.7-47.1); HEMOGLOBIN 12.2 g/dL (12.5-16.3); LYMPHOCYTES # (AUTO) 2.9 K/uL (20.0-40.0); LYMPHOCYTES % (AUTO) 18.7 % (20.5-51.5); MEAN CORPUSCULAR HEMOGLOBIN 26.5 uug (23.8-33.4); MEAN CORPUSCULAR HGB CONC 33 g/dL (32.5-36.3); MEAN CORPUSCULAR VOLUME 79.5 fL (73.0-96.2); MONOCYTES # (AUTO) 1.2 K/uL (2.0-10.0); MONOCYTES % (AUTO) 8.1 % (0.0-11.0); NEUTROPHILS # (AUTO) 10.5 K/uL (1.8-8.9); NEUTROPHILS % (AUTO) 68.3 % (38.5-71.5); PLATELET COUNT (AUTO) 379 K/uL (152-348); RED BLOOD CELL COUNT(AUTO) 4.62 MIL/uL (4.06-5.63); WHITE BLOOD COUNT (AUTO) 15.3 K/uL (3.6-10.2)
[2019-03-06 01:16] LABS: CREATININE 1.1 mg/dL (0.6-1.3); POTASSIUM 4.1 mmol/L (3.5-5.1)
[2019-03-06 01:18] LABS: THYROID STIMULATING HORMONE 3.557 mIU/mL (0.358-3.740)
[2019-03-06 01:21] LABS: BILIRUBIN,TOTAL 0.4 mg/dL (0.2-1.0); TOTAL PROTEIN, SERUM 8.1 g/dL (6.4-8.2)
--- NOTE | 2019-03-06 01:37 | NUR ---
Pt provided stool sample, sent to lab.
--- NOTE | 2019-03-06 01:53 | NUR ---
Patient discharged to home in stable condition. Written and verbal after care instructions given. Patient verbalizes understanding of instructions. Pt ambulated out of ER with steady gait, no acute signs of distress, VSS, all belongings taken, instructed not to drive.
[2019-03-06 01:54] VITALS: BP 133/78
== END 2019-03-06 01:55 | disposition home or self-care (01) ==
LOC: ER 00:23
DX: G89.29 Other chronic pain (principal); R10.9 Unspecified abdominal pain; Z88.5 Allergy status to narcotic agent; Z79.899 Other long term (current) drug therapy
CPT/HCPCS: 36415; 84443; 85025; A4663

== ENCOUNTER 2019-03-23 21:18 | Emergency (ER) | payer OTHER ==
[~2019-03-23] VITALS: Ht 188 cm; Wt 102.1 kg
--- NOTE | 2019-03-23 22:19 | NUR ---
Dr. Johnson at bedside for MSE.
--- NOTE | 2019-03-23 23:03 | NUR ---
Patient discharged to home in stable conditon. Written and verbal after care instructions given. Patient verbalizes understanding of instructions. Pt ambulated out of ER with steady gait, VSS, no acute signs of distress, all belongings taken.
[2019-03-23 23:04] VITALS: BP 115/80
== END 2019-03-23 23:05 | disposition home or self-care (01) ==
LOC: ER 21:23
DX: B34.9 Viral infection, unspecified (principal); J02.9 Acute pharyngitis, unspecified; R19.7 Diarrhea, unspecified; Z88.5 Allergy status to narcotic agent; Z79.899 Other long term (current) drug therapy
CPT/HCPCS: 36415; 86403; 87070; A4663

== ENCOUNTER 2019-04-29 01:26 | Emergency (ER) | payer OTHER ==
[~2019-04-29] VITALS: Ht 188 cm; Wt 102.1 kg
[2019-04-29] MEDS ORDERED: OXYCODONE/APAP 5-325 MG TABLET ONE (02:14)
[2019-04-29] MEDS ORDERED: OXYCODONE/APAP 5-325 MG TABLET PO ONE (02:15)
[2019-04-29 02:22] LABS: BASOPHILS # (AUTO) 0.1 K/uL (0.0-8.0); BASOPHILS % (AUTO) 0.7 % (0.0-2.0); EOSINOPHILS # (AUTO) 0.6 K/uL (0.0-0.7); EOSINOPHILS % (AUTO) 3.9 % (0.0-7.0); HEMATOCRIT 35.3 % (36.7-47.1); HEMOGLOBIN 11.7 g/dL (12.5-16.3); LYMPHOCYTES # (AUTO) 2.8 K/uL (20.0-40.0); LYMPHOCYTES % (AUTO) 18.9 % (20.5-51.5); MEAN CORPUSCULAR HEMOGLOBIN 25.9 uug (23.8-33.4); MEAN CORPUSCULAR HGB CONC 33 g/dL (32.5-36.3); MONOCYTES % (AUTO) 6.8 % (0.0-11.0); NEUTROPHILS # (AUTO) 10.3 K/uL (1.8-8.9); NEUTROPHILS % (AUTO) 69.7 % (38.5-71.5); PLATELET COUNT (AUTO) 504 K/uL (152-348); RED BLOOD CELL COUNT(AUTO) 4.52 MIL/uL (4.06-5.63); WHITE BLOOD COUNT (AUTO) 14.8 K/uL (3.6-10.2)
[2019-04-29 02:29] LABS: POTASSIUM 3.8 mmol/L (3.5-5.1)
[2019-04-29 02:35] LABS: BILIRUBIN,DIRECT 0.1 mg/dL (0.0-0.2); BILIRUBIN,TOTAL 0.2 mg/dL (0.2-1.0); TOTAL PROTEIN, SERUM 8.1 g/dL (6.4-8.2)
--- NOTE | 2019-04-29 04:22 | NUR ---
Patient discharged to home in stable conditon. Written and verbal after care instructions given. Patient verbalizes understanding of instructions. Pt ambulated out of ER with steady gait, no acute signs of distress, VSS, all belongings taken.
[2019-04-29 04:23] VITALS: BP 150/84
== END 2019-04-29 04:24 | disposition home or self-care (01) ==
LOC: ER 01:29
DX: K51.90 Ulcerative colitis, unspecified, without complications (principal); B37.49 Other urogenital candidiasis; Z88.5 Allergy status to narcotic agent; Z79.899 Other long term (current) drug therapy
CPT/HCPCS: 36415; 70030-TC; 83690; 85025; 85730; A4663

== ENCOUNTER 2019-07-17 09:29 | Emergency (ER) | payer OTHER ==
[~2019-07-17] VITALS: Ht 188 cm; Wt 99.8 kg
--- NOTE | 2019-07-17 09:34 | NUR ---
Dr Ramirez at the bedside for MSE.
[2019-07-17] MEDS ORDERED: IV NORMAL SALINE 1000 ML BAG IV ONE (09:45)
[2019-07-17] MEDS ORDERED: OXYCODONE/APAP 5-325 MG TABLET ONE (09:51)
[2019-07-17 09:57] LABS: BASOPHILS # (AUTO) 0.1 K/uL (0.0-8.0); BASOPHILS % (AUTO) 0.9 % (0.0-2.0); EOSINOPHILS # (AUTO) 0.8 K/uL (0.0-0.7); EOSINOPHILS % (AUTO) 5.8 % (0.0-7.0); HEMATOCRIT 35.1 % (36.7-47.1); HEMOGLOBIN 11.4 g/dL (12.5-16.3); LYMPHOCYTES # (AUTO) 2.2 K/uL (20.0-40.0); LYMPHOCYTES % (AUTO) 16.5 % (20.5-51.5); MEAN CORPUSCULAR HEMOGLOBIN 24.3 uug (23.8-33.4); MEAN CORPUSCULAR HGB CONC 33 g/dL (32.5-36.3); MEAN CORPUSCULAR VOLUME 74.5 fL (73.0-96.2); MONOCYTES # (AUTO) 1.3 K/uL (2.0-10.0); MONOCYTES % (AUTO) 9.7 % (0.0-11.0); NEUTROPHILS # (AUTO) 8.9 K/uL (1.8-8.9); NEUTROPHILS % (AUTO) 67.1 % (38.5-71.5); PLATELET COUNT (AUTO) 532 K/uL (152-348); RED BLOOD CELL COUNT(AUTO) 4.71 MIL/uL (4.06-5.63); WHITE BLOOD COUNT (AUTO) 13.2 K/uL (3.6-10.2)
[2019-07-17 10:00] LABS: CREATININE 1.1 mg/dL (0.6-1.3); POTASSIUM 3.8 mmol/L (3.5-5.1)
[2019-07-17] MEDS ORDERED: OXYCODONE/APAP 5-325 MG TABLET PO ONE (10:00)
[2019-07-17 10:06] LABS: BILIRUBIN,DIRECT 0.1 mg/dL (0.0-0.2); BILIRUBIN,TOTAL 0.5 mg/dL (0.2-1.0); TOTAL PROTEIN, SERUM 8.6 g/dL (6.4-8.2)
[2019-07-17 10:22] LABS: BAND % (MANUAL) 2 % (0-10); EOSINOPHILS % (MANUAL) 10 % (0-8); LYMPHOCYTES % (MANUAL) 17 % (20-40); MONOCYTES % (MANUAL) 2 % (2-10); NEUTROPHILS % (MANUAL) 69 % (42-75)
--- NOTE | 2019-07-17 10:47 | NUR ---
Pt states feeling better.
--- NOTE | 2019-07-17 11:42 | NUR ---
Stool sample collected and sent to LAB.
[2019-07-17 11:59] VITALS: BP 120/71
--- NOTE | 2019-07-17 11:59 | NUR ---
Patient discharged to home in stable conditon. Written and verbal after care instructions given. Patient verbalizes understanding of instructions.
--- NOTE | 2019-07-17 11:59 | NUR ---
IV removed. Catheter intact and site benign. Pressure and 4x4 gauze applied to site. No bleeding noted.
== END 2019-07-17 12:00 | disposition home or self-care (01) ==
LOC: ER 09:29
DX: K51.90 Ulcerative colitis, unspecified, without complications (principal); G89.29 Other chronic pain; R10.30 Lower abdominal pain, unspecified; Z88.5 Allergy status to narcotic agent; Z79.899 Other long term (current) drug therapy
CPT/HCPCS: 70030-TC; 83690; 85025; A4663; J7030

== ENCOUNTER 2020-06-12 20:53 | Inpatient (IN) | payer OTHER ==
[~2020-06-12] VITALS: Ht 188 cm; Wt 113.4 kg
[~2020-06-12 20:53] MED LIST changes: +CEPH500C2 PO; +DOXY100C2 PO; +HYDR-4384 PO; -[UNRECOGNIZED DRUG - OTHER]
--- NOTE | 2020-06-12 21:10 | NUR ---
Patient walked into ER c/o scrotum pain and swelling. Patient was admitted here on 05/29/20 for scrotum cellulitis and was D/C'ed with Rx for doxycycline and cephalexin. Came back for worsening scrotum pain and swelling.
[2020-06-12] MEDS ORDERED: IV NORMAL SALINE 1000 ML BAG IV ONE (21:30)
[2020-06-12] MEDS ORDERED: VANCOMYCIN IV 1,000 MG in IV DEXTROSE 5% 250 ML IV ONE (21:30)
[2020-06-12 21:42] LABS: *BILIRUBIN,URIN NEGATIVE (NEGATIVE); *CLARITY,URINE CLEAR (CLEAR); *COLOR,URINE YELLOW (YELLOW); *KETONES,URINE NEGATIVE (NEGATIVE); *UROBILINOGEN,URINE 0.2 E.U./dl (NORMAL); LEUKOCYTE ESTERASE ,URINE NEGATIVE (NEGATIVE); NITRITE, URINE NEGATIVE (NEGATIVE); PH,URINE 5.5 (5.0-8.0); UGLUCOSE NEGATIVE (NEGATIVE)
[2020-06-12] MEDS ORDERED: VANCOMYCIN IV 200 ML ONE (21:43)
[2020-06-12 21:48] LABS: *BLOOD, URINE TRACE INTACT (NEGATIVE)
[2020-06-12 21:52] LABS: BASOPHILS # (AUTO) 0.1 K/uL (0.0-8.0); BASOPHILS % (AUTO) 0.5 % (0.0-2.0); EOSINOPHILS # (AUTO) 0.5 K/uL (0.0-0.7); EOSINOPHILS % (AUTO) 4.2 % (0.0-7.0); HEMATOCRIT 41.2 % (36.7-47.1); HEMOGLOBIN 13.6 g/dL (12.5-16.3); LYMPHOCYTES # (AUTO) 3.2 K/uL (20.0-40.0); LYMPHOCYTES % (AUTO) 30.1 % (20.5-51.5); MEAN CORPUSCULAR HEMOGLOBIN 26.8 uug (23.8-33.4); MEAN CORPUSCULAR HGB CONC 33 g/dL (32.5-36.3); MEAN CORPUSCULAR VOLUME 81.5 fL (73.0-96.2); MONOCYTES # (AUTO) 0.9 K/uL (2.0-10.0); MONOCYTES % (AUTO) 8.1 % (0.0-11.0); NEUTROPHILS # (AUTO) 6.2 K/uL (1.8-8.9); NEUTROPHILS % (AUTO) 57.1 % (38.5-71.5); PLATELET COUNT (AUTO) 406 K/uL (152-348); POTASSIUM 3.7 mmol/L (3.5-5.1); RED BLOOD CELL COUNT(AUTO) 5.05 MIL/uL (4.06-5.63); WHITE BLOOD COUNT (AUTO) 10.8 K/uL (3.6-10.2)
[2020-06-12 21:57] LABS: BILIRUBIN,DIRECT 0.1 mg/dL (0.0-0.2); BILIRUBIN,TOTAL 0.3 mg/dL (0.2-1.0); TOTAL PROTEIN, SERUM 8.6 g/dL (6.4-8.2)
--- NOTE | 2020-06-12 22:24 | NUR ---
Dr Wolfe speaking with Hermila Martinez [employer] ARCHITECT wireless consultant epic panel.
[2020-06-12] MEDS ORDERED: HYDROMORPHONE 1 MG/1 ML DISP.SYRIN IV ONE (22:30)
[2020-06-12] MEDS ORDERED: ONDANSETRON 4 MG/2 ML VIAL IV ONE (22:30)
[2020-06-12] MEDS ORDERED: ONDANSETRON 4 MG/2 ML VIAL ONE (22:37)
[2020-06-12] MEDS ORDERED: HYDROMORPHONE 1 MG/1 ML DISP.SYRIN ONE (22:37)
[2020-06-12] MEDS ORDERED: MAGNESIUM HYDROXIDE 30 ML LIQUID UDC PO PRN (22:45)
[2020-06-12] MEDS ORDERED: ONDANSETRON 4 MG/2 ML VIAL IV PRN (22:45)
[2020-06-12] MEDS ORDERED: Z GUARD REMEDY PASTE 57 GM TUBE TOP PRN (22:45)
[2020-06-12] MEDS ORDERED: ACETAMINOPHEN 325 MG TABLET PO PRN (22:45)
--- NOTE | 2020-06-12 23:01 | NUR ---
Patient admitted to Med Surg. Handed off to SABRINA Lopez.
[2020-06-12] MEDS: IV NS 1000 ML 1,000 ML IV PRN (23:35)
[2020-06-12 23:45] VITALS: BP 135/83
--- NOTE | 2020-06-12 23:50 | NUR ---
Admitted to med surg on the floor via wheel chair @ 0698 from ED Dx: scrotum cellulitis failed outpatient treatment. c/o scrotal swelling, redness, warmth and pain. Pt. A/Ox4, verbally responsive and able to make needs known. Pt. oriented to unit and staff. Pt. denies any allergies. Admission questionnaires completed per unit policy. Belongings list completed and placed in chart. Skin assessment completed, noted with scrotal swelling/redness, pt refused picture to be taken. IV 20 G LAC intact running NS IV fluid started per order at 70 CC/HR and vanco. Pt. continent to both B&B, BRP + BM 06/12. Ambulatory with steady gait. Safety measures in place. Call light and all frequently used items within pt. reach. Will continue to monitor through the night.
[2020-06-13 00:35] LABS: BACTERIA,URINE NONE SEEN /HPF (NONE SEEN); RBC,URINE 0-3 /HPF (0-3); WBC,URINE 0-3 /HPF (0-3)
[2020-06-13 00:36] LABS: SQUAMOUS EPITHELIAL CELL,UR FEW /HPF (NONE SEEN)
[2020-06-13] MEDS: HYDROCODONE/APAP 5-325MG TABLET PO PRN (01:57)
--- NOTE | 2020-06-13 02:00 | NUR ---
complaint of 8/10 pain, administered PRN norco, per pt request
[2020-06-13 04:00] VITALS: BP 111/64
--- NOTE | 2020-06-13 06:00 | NUR ---
pt stated [place] is not effective, complains of 9/10 pain. MD notified with new orders of Morphine 2mg IV Q4H
[2020-06-13 07:01] LABS: BASOPHILS # (AUTO) 0.1 K/uL (0.0-8.0); BASOPHILS % (AUTO) 0.7 % (0.0-2.0); EOSINOPHILS # (AUTO) 0.5 K/uL (0.0-0.7); HEMATOCRIT 38.3 % (36.7-47.1); HEMOGLOBIN 12.6 g/dL (12.5-16.3); LYMPHOCYTES % (AUTO) 30.5 % (20.5-51.5); MEAN CORPUSCULAR HEMOGLOBIN 26.9 uug (23.8-33.4); MEAN CORPUSCULAR HGB CONC 33 g/dL (32.5-36.3); MEAN CORPUSCULAR VOLUME 81.6 fL (73.0-96.2); MONOCYTES % (AUTO) 9.9 % (0.0-11.0); NEUTROPHILS # (AUTO) 5.4 K/uL (1.8-8.9); NEUTROPHILS % (AUTO) 53.9 % (38.5-71.5); PLATELET COUNT (AUTO) 339 K/uL (152-348); RED BLOOD CELL COUNT(AUTO) 4.69 MIL/uL (4.06-5.63); WHITE BLOOD COUNT (AUTO) 9.9 K/uL (3.6-10.2)
[2020-06-13 07:08] LABS: BILIRUBIN,TOTAL 0.5 mg/dL (0.2-1.0); MAGNESIUM 2.2 mg/dL (1.8-2.4); PHOSPHOROUS 3.9 mg/dL (2.5-4.9); TOTAL PROTEIN, SERUM 7.5 g/dL (6.4-8.2)
[2020-06-13] MEDS: MORPHINE SULFATE 2 MG/1 ML DISP.SYRIN IV PRN ×2 (07:34→11:51)
--- NOTE | 2020-06-13 07:35 | NUR ---
pt complaint of 8/10 pain, administered morphine PRN. Will monitor for effectiveness. Will endorse report to next nurse.
--- NOTE | 2020-06-13 07:45 | NUR ---
Received patient in bed, awake, alert and verbally responsive, On Room air, sat 98%. No signs of distress noted. No SOB. Morphine IV was last given at 0734. No complain of Pain at this time. kept comfortable. Will continue to monitor.
[2020-06-13] MEDS: VANCOMYCIN IV 1,500 MG in IV DEXTROSE 5% 500 ML IV SCH ×2 (09:06→20:16)
[2020-06-13 12:00] VITALS: BP 120/76
[2020-06-13] MEDS: IV NS 1000 ML 1,000 ML IV PRN (14:49)
[2020-06-13] MEDS: HYDROMORPHONE 1 MG/1 ML DISP.SYRIN IV PRN ×2 (15:36→20:11)
[2020-06-13 16:00] VITALS: BP 123/60
--- NOTE | 2020-06-13 18:17 | NUR ---
patient is awake, verbally responsive. No signs of distress noted. No SOB. Pain medication given as ordered. IVF infusing to LAC, No signs of infiltration. All due medications given as ordered. kept comfortable. Will endorse to Oncoming Nurse.
[2020-06-13 20:15] VITALS: BP 137/74
[2020-06-14] MEDS: HYDROMORPHONE 1 MG/1 ML DISP.SYRIN IV PRN ×7 (00:26→22:21)
[2020-06-14 04:00] VITALS: BP 112/69
[2020-06-14] MEDS: IV NS 1000 ML 1,000 ML IV PRN ×2 (06:03→20:49)
[2020-06-14] MEDS: HYDROCODONE/APAP 5-325MG TABLET PO PRN (06:07)
--- NOTE | 2020-06-14 07:09 | NUR ---
Patient Alert x4.No acute distress noted through out the night.Still c/o scrotum pain.Medicated with pain .Patient ambulates to bathroom .Voided well .Continue safety measures. Will endorse to oncoming shift.
[2020-06-14 09:13] LABS: POTASSIUM 4.5 mmol/L (3.5-5.1)
[2020-06-14 09:14] LABS: VANCOMYCIN,TROUGH 16.8 ug/mL (12.0-20.0)
[2020-06-14] MEDS: VANCOMYCIN IV 1,500 MG in IV DEXTROSE 5% 500 ML IV SCH ×2 (10:02→20:19)
[2020-06-14 12:11] VITALS: BP 121/72
[2020-06-14 16:15] VITALS: BP 136/84
--- NOTE | 2020-06-14 17:36 | NUR ---
Pt AAOx4. Complains of scrotal pain 8-03/21, Dilaudid 1mg PRN adminsitered x3 w/ good relief. Skin intact. RA. Ambulatory and steady. Continent x2. All needs attended to. Plan: AM labs, pain management, IV abx
--- NOTE | 2020-06-14 19:35 | NUR ---
PT IN BED, AWAKE. DENIES ANY ACUTE DISTRESS. COMPLAINS OF 8/10 SCROTAL PAIN. PT IS NOTED TO HAVE SWELLING AND REDNESS OF THE SCROTUM. WILL MANAGE PAIN THROUGHOUT THE SHIFT. V/S STABLE ON ROOM AIR. SAFETY MEASURES IN PLACE. CALL LIGHT WITHIN REACH. WILL CONTINUE WITH THE PLAN OF CARE.
[2020-06-15] MEDS: HYDROMORPHONE 1 MG/1 ML DISP.SYRIN IV PRN ×7 (03:58→23:55)
[2020-06-15 08:04] LABS: CREATININE 1.1 mg/dL (0.6-1.3); POTASSIUM 3.9 mmol/L (3.5-5.1)
[2020-06-15] MEDS: VANCOMYCIN IV 1,500 MG in IV DEXTROSE 5% 500 ML IV SCH ×2 (09:31→21:11)
[2020-06-15 12:00] VITALS: BP 125/69
--- NOTE | 2020-06-15 15:39 | NUR ---
PAIN MANAGED EFFECTIVELY ON MY SHIFT. V/S STABLE. SAFETY MEASURES IN PLACE.
--- NOTE | 2020-06-15 15:45 | NUR ---
PATIENT REASSIGNMENT AT THIS TIME RESUMED CARE OF THIS PATIENT HE IS ALERT AND ORIENTED WITH IVF ORDERED WITH NO S/S OF INFILTERATION ON SITE AMBULATORY IN ROOM AND TO THE BATHROOM WITH SLOW STEADY GAIT NOT IN DISTRESS AND NO COMPLIANTS AT THIS TIME.
[2020-06-15 16:11] VITALS: BP 123/74
[2020-06-15] MEDS: IV NS 1000 ML 1,000 ML IV PRN (17:32)
--- NOTE | 2020-06-15 17:45 | NUR ---
MEDICATED PATIENT WITH DILAUDID ORDERED C/O PAIN IN HIS SCROTUM ORDERED AND HELPFUL MADE COMFORTABLE WILL CONTINUE TO OBSERVE.
--- NOTE | 2020-06-15 18:55 | NUR ---
PATIENT IS RESTING WITH NO C/O NOTED GIVEN A SPECIMEN CUP TO COLLECT URINE SAMPLE NEXT TIME HE GOES TO THE BATHROOM AND HE EXPRESSED UNDERSTANDING.
[2020-06-15 20:00] VITALS: BP 119/74
[2020-06-15 22:46] LABS: *BILIRUBIN,URIN NEGATIVE (NEGATIVE); *BLOOD, URINE NEGATIVE (NEGATIVE); *CLARITY,URINE CLEAR (CLEAR); *COLOR,URINE YELLOW (YELLOW); *KETONES,URINE NEGATIVE (NEGATIVE); *UROBILINOGEN,URINE 0.2 E.U./dl (NORMAL); LEUKOCYTE ESTERASE ,URINE NEGATIVE (NEGATIVE); NITRITE, URINE NEGATIVE (NEGATIVE); UGLUCOSE NEGATIVE (NEGATIVE)
[2020-06-15 23:30] LABS: *CREATININE,URINE 30.5 mg/dL (30-125); *URINE TOTAL PROTEIN RANDOM < 6.0 mg/dL (<150/24HR)
[2020-06-16] MEDS: HYDROMORPHONE 1 MG/1 ML DISP.SYRIN IV PRN ×8 (01:14→22:58)
[2020-06-16] MEDS: IV NS 1000 ML 1,000 ML IV PRN (03:07)
[2020-06-16 04:00] VITALS: BP 127/63
--- NOTE | 2020-06-16 07:00 | NUR ---
Received patient in bed, awake, alert and verbally responsive, . No signs of distress noted. No SOB. No complain of Pain at this time. kept comfortable. Will continue to monitor.
--- NOTE | 2020-06-16 07:06 | NUR ---
Handoff with day team nurse SABRINA Chen. Darrion Hernández RN
[2020-06-16 07:35] LABS: CREATININE 1.1 mg/dL (0.6-1.3)
[2020-06-16] MEDS: VANCOMYCIN IV 1,250 MG in IV DEXTROSE 5% 250 ML IV SCH ×2 (08:08→20:17)
[2020-06-16 08:10] VITALS: BP 116/77
[2020-06-16 16:28] VITALS: BP 126/75
[2020-06-16 20:09] VITALS: BP 110/74
[2020-06-17] MEDS: HYDROMORPHONE 1 MG/1 ML DISP.SYRIN IV PRN ×3 (05:17→11:18)
[2020-06-17 05:19] VITALS: BP 135/82
[2020-06-17 06:48] LABS: BASOPHILS % (AUTO) 0.4 % (0.0-2.0); EOSINOPHILS # (AUTO) 0.6 K/uL (0.0-0.7); HEMATOCRIT 38.5 % (36.7-47.1); LYMPHOCYTES # (AUTO) 2.1 K/uL (20.0-40.0); LYMPHOCYTES % (AUTO) 23.9 % (20.5-51.5); MEAN CORPUSCULAR HEMOGLOBIN 27.3 uug (23.8-33.4); MEAN CORPUSCULAR HGB CONC 34 g/dL (32.5-36.3); MEAN CORPUSCULAR VOLUME 80.7 fL (73.0-96.2); MONOCYTES # (AUTO) 0.9 K/uL (2.0-10.0); MONOCYTES % (AUTO) 10.5 % (0.0-11.0); NEUTROPHILS # (AUTO) 5.1 K/uL (1.8-8.9); NEUTROPHILS % (AUTO) 58.2 % (38.5-71.5); PLATELET COUNT (AUTO) 365 K/uL (152-348); RED BLOOD CELL COUNT(AUTO) 4.77 MIL/uL (4.06-5.63); WHITE BLOOD COUNT (AUTO) 8.8 K/uL (3.6-10.2)
[2020-06-17 07:10] LABS: BILIRUBIN,TOTAL 0.5 mg/dL (0.2-1.0); CREATININE 1.1 mg/dL (0.6-1.3); PHOSPHOROUS 3.2 mg/dL (2.5-4.9); POTASSIUM 3.9 mmol/L (3.5-5.1); TOTAL PROTEIN, SERUM 7.7 g/dL (6.4-8.2)
[2020-06-17] MEDS: VANCOMYCIN IV 1,250 MG in IV DEXTROSE 5% 250 ML IV SCH (08:08)
[2020-06-17] MEDS: HYDROCODONE/APAP 5-325MG TABLET PO PRN (14:57)
[2020-06-17] MEDS ORDERED: HYDR-4354 PO (15:15)
[2020-06-17] MEDS ORDERED: LINE600T12 PO (15:15)
--- NOTE | 2020-06-17 15:39 | NUR ---
PATIENT DISCHARGED SCHEDULED. VSS. PATIENT AOX4. NO S/S OF DISTRESS NOTED. IV REMOVED, NO S/S OF BLEEDING NOTED. PROVIDED EDUCATIONAL MATERIAL REGARDING DIAGNOSIS, PATIENT VERBALIZED UNDERSTANDING. ID BAND REMOVED. BELONGINGS RETURNED TO PATIENT AND BELONGINGS LIST SIGNED. ESCORTED PATIENT DOWN TO LOBBY, PICKED UP BY TAXI.
== END 2020-06-17 15:43 | disposition home or self-care (01) | DRG 501 ==
LOC: ER 20:56 → MEDSURG3 22:43
PROVIDERS: ADMIT Internal Medicine; ATTEND Internal Medicine
DX: N49.2 Inflammatory disorders of scrotum (principal); K50.90 Crohn's disease, unspecified, without complications; E66.9 Obesity, unspecified; Z68.32 Body mass index [BMI] 32.0-32.9, adult; E86.0 Dehydration; Z20.828 Contact with and (suspected) exposure to other viral communicable diseases; D47.3 Essential (hemorrhagic) thrombocythemia; Z90.49 Acquired absence of other specified parts of digestive tract; E22.2 Syndrome of inappropriate secretion of antidiuretic hormone
CPT/HCPCS: 36415; 83605; 83690; 83735; 84100; 84156; 84300; 85025; 86803; 87040; 87086; 87806; A4663; G0378; J1170; J2270; J2405; J3370; J7030; J7060; U0003

== ENCOUNTER 2020-07-15 23:18 | Inpatient (IN) | payer OTHER ==
[~2020-07-15] VITALS: Ht 188 cm; Wt 113.4 kg
[~2020-07-15 23:18] MED LIST changes: -CEPH500C2 PO; -DOXY100C2 PO; +HYDR-4354 PO; -HYDR-4384 PO; +LINE600T12 PO; -MULT-1119 PO
[2020-07-16] MEDS ORDERED: MULT-853 (00:04)
[2020-07-16] MEDS ORDERED: OXYCODONE/APAP 5-325 MG TABLET PO ONE (00:30)
[2020-07-16] MEDS ORDERED: VANCOMYCIN IV 1,000 MG in IV DEXTROSE 5% 250 ML IV ONE (00:30)
[2020-07-16] MEDS ORDERED: ONDANSETRON 4 MG/2 ML VIAL IV ONE (00:30)
[2020-07-16] MEDS ORDERED: OXYCODONE/APAP 5-325 MG TABLET ONE ×2 (00:44→10:19)
[2020-07-16] MEDS ORDERED: ONDANSETRON 4 MG/2 ML VIAL IV PRN (01:00)
[2020-07-16] MEDS ORDERED: MAGNESIUM HYDROXIDE 30 ML LIQUID UDC PO PRN (01:00)
[2020-07-16] MEDS ORDERED: OXYCODONE/APAP 5-325 MG TABLET PO PRN (01:00)
[2020-07-16] MEDS ORDERED: Z GUARD REMEDY PASTE 57 GM TUBE TOP PRN (01:00)
[2020-07-16] MEDS ORDERED: ACETAMINOPHEN 325 MG TABLET PO PRN (01:00)
[2020-07-16 01:08] LABS: *BILIRUBIN,URIN NEGATIVE (NEGATIVE); *BLOOD, URINE 1+ (NEGATIVE); *CLARITY,URINE CLEAR (CLEAR); *COLOR,URINE YELLOW (YELLOW); *KETONES,URINE NEGATIVE (NEGATIVE); *UROBILINOGEN,URINE 0.2 E.U./dl (NORMAL); LEUKOCYTE ESTERASE ,URINE NEGATIVE (NEGATIVE); NITRITE, URINE NEGATIVE (NEGATIVE); PH,URINE 5.5 (5.0-8.0); UGLUCOSE NEGATIVE (NEGATIVE)
[2020-07-16] MEDS ORDERED: ONDANSETRON 4 MG/2 ML VIAL ONE (01:08)
[2020-07-16] MEDS ORDERED: VANCOMYCIN IV 200 ML ONE (01:09)
[2020-07-16 01:12] LABS: BASOPHILS # (AUTO) 0.1 K/uL (0.0-8.0); BASOPHILS % (AUTO) 0.7 % (0.0-2.0); EOSINOPHILS # (AUTO) 0.5 K/uL (0.0-0.7); EOSINOPHILS % (AUTO) 4.8 % (0.0-7.0); HEMOGLOBIN 13.8 g/dL (12.5-16.3); LYMPHOCYTES # (AUTO) 3.4 K/uL (20.0-40.0); LYMPHOCYTES % (AUTO) 33.4 % (20.5-51.5); MEAN CORPUSCULAR HEMOGLOBIN 27.3 uug (23.8-33.4); MEAN CORPUSCULAR HGB CONC 34 g/dL (32.5-36.3); MEAN CORPUSCULAR VOLUME 81.2 fL (73.0-96.2); MONOCYTES # (AUTO) 0.8 K/uL (2.0-10.0); MONOCYTES % (AUTO) 8.1 % (0.0-11.0); NEUTROPHILS # (AUTO) 5.4 K/uL (1.8-8.9); PLATELET COUNT (AUTO) 411 K/uL (152-348); RED BLOOD CELL COUNT(AUTO) 5.05 MIL/uL (4.06-5.63); WHITE BLOOD COUNT (AUTO) 10.2 K/uL (3.6-10.2)
[2020-07-16 01:16] LABS: CREATININE 1.1 mg/dL (0.6-1.3); POTASSIUM 3.5 mmol/L (3.5-5.1)
[2020-07-16 01:22] LABS: BILIRUBIN,DIRECT 0.1 mg/dL (0.0-0.2); BILIRUBIN,TOTAL 0.5 mg/dL (0.2-1.0); TOTAL PROTEIN, SERUM 8.8 g/dL (6.4-8.2)
--- NOTE | 2020-07-16 02:08 | NUR ---
ALL MD ORDERS COMPLETED. PT RECEIEVED ZOFRAN AND PERCOCET EARLIER AND PRESENTLY VANCO INFUSING IV. PT AT THIS TIME HAS BEEN ACCEPTED BY SARAH BAUTISTA NP. PT AWAITING FOR MS BED. PT POSITIONED FOR COMFORT.
--- NOTE | 2020-07-16 06:23 | NUR ---
PT SLEEPING ,EYES CLOSED, AWAITING FOR MS BED.
--- NOTE | 2020-07-16 07:06 | NUR ---
SBAR REPORT TO AM SHIFT.
[2020-07-16] MEDS: ENOXAPARIN SODIUM 40 MG/0.4 ML DISP.SYRIN SQ SCH (09:00)
[2020-07-16] MEDS ORDERED: ENOXAPARIN SODIUM 40 MG/0.4 ML DISP.SYRIN SQ ONE (09:32)
[2020-07-16] MEDS: VANCOMYCIN IV 1,250 MG in IV DEXTROSE 5% 250 ML IV SCH ×2 (10:51→22:32)
[2020-07-16 13:49] LABS: BACTERIA,URINE NONE SEEN /HPF (NONE SEEN); RBC,URINE 0-3 /HPF (0-3); SQUAMOUS EPITHELIAL CELL,UR NONE SEEN /HPF (NONE SEEN); WBC,URINE 0-3 /HPF (0-3)
[2020-07-16] MEDS ORDERED: HYDROMORPHONE 1 MG/1 ML DISP.SYRIN ONE ×2 (16:29→20:49)
[2020-07-16] MEDS: HYDROMORPHONE 1 MG/1 ML DISP.SYRIN IV PRN ×2 (16:39→20:48)
--- NOTE | 2020-07-16 20:00 | NUR ---
Patient in room laying on gurny with no distress noted. Patient c/o mild pain on scrotum area. IV hep lock on left forearm patent with no redness or swelling.
[2020-07-17] MEDS: HYDROMORPHONE 1 MG/1 ML DISP.SYRIN IV PRN ×5 (01:13→19:59)
[2020-07-17] MEDS ORDERED: HYDROMORPHONE 1 MG/1 ML DISP.SYRIN ONE (01:15)
--- NOTE | 2020-07-17 02:05 | NUR ---
Transfered to 3rd floor via wheelchair with no distress noted.
[2020-07-17 03:35] VITALS: BP 142/97
--- NOTE | 2020-07-17 05:55 | NUR ---
Received a 29 year old male admitted for cellulitis of the scrotum and penile area. AAOx4 MARIA's Ambulatory ad katty. VSS. No acute distress noted. Continent of bowel and bladder. No BM noted this shift. Scrotal area and penile area reddenned and swollen tender to touch. Patient admitted for pain management and IV ABT's. Will monitor patient. Medicated with Dilaudid 0.5 mg for scrotal pain. No acute distress noted.
[2020-07-17 06:02] VITALS: BP 115/78
[2020-07-17] MEDS: ENOXAPARIN SODIUM 40 MG/0.4 ML DISP.SYRIN SQ SCH (08:10)
[2020-07-17] MEDS: MULTIVITAMINS,THERAPEUTIC TABLET PO SCH (09:24)
[2020-07-17 10:16] LABS: BASOPHILS % (AUTO) 0.4 % (0.0-2.0); EOSINOPHILS # (AUTO) 0.5 K/uL (0.0-0.7); EOSINOPHILS % (AUTO) 5.1 % (0.0-7.0); HEMATOCRIT 37.7 % (36.7-47.1); HEMOGLOBIN 12.5 g/dL (12.5-16.3); LYMPHOCYTES # (AUTO) 2.4 K/uL (20.0-40.0); LYMPHOCYTES % (AUTO) 22.6 % (20.5-51.5); MEAN CORPUSCULAR HEMOGLOBIN 26.8 uug (23.8-33.4); MEAN CORPUSCULAR HGB CONC 33 g/dL (32.5-36.3); MEAN CORPUSCULAR VOLUME 80.7 fL (73.0-96.2); MONOCYTES # (AUTO) 0.9 K/uL (2.0-10.0); MONOCYTES % (AUTO) 8.7 % (0.0-11.0); NEUTROPHILS # (AUTO) 6.7 K/uL (1.8-8.9); NEUTROPHILS % (AUTO) 63.2 % (38.5-71.5); PLATELET COUNT (AUTO) 397 K/uL (152-348); RED BLOOD CELL COUNT(AUTO) 4.67 MIL/uL (4.06-5.63); WHITE BLOOD COUNT (AUTO) 10.5 K/uL (3.6-10.2)
[2020-07-17 10:26] LABS: CREATININE 1.3 mg/dL (0.6-1.3); MAGNESIUM 1.8 mg/dL (1.8-2.4); POTASSIUM 3.6 mmol/L (3.5-5.1)
[2020-07-17] MEDS: VANCOMYCIN IV 1,250 MG in IV DEXTROSE 5% 250 ML IV SCH ×2 (11:55→23:39)
[2020-07-17 12:00] VITALS: BP 114/73
[2020-07-17 16:00] VITALS: BP 112/64
[2020-07-17 20:00] VITALS: BP 136/80
[2020-07-17] MEDS: CEFTRIAXONE 2 G in IV DEXTROSE 5% 100 ML IV SCH (21:34)
[2020-07-17] MEDS ORDERED: CEFTRIAXONE 1 G VIAL ONE (21:38)
[2020-07-18] MEDS: HYDROMORPHONE 1 MG/1 ML DISP.SYRIN IV PRN ×6 (00:41→22:02)
--- NOTE | 2020-07-18 02:21 | NUR ---
Condition unchanged. AAOx4 No acute distress noted. VSS. Needs attended. IV ABT given as scheduled. Pain meds given also. Relief noted. Will monitor patient. Voiding freely.
[2020-07-18 04:00] VITALS: BP 120/65
[2020-07-18] MEDS: MULTIVITAMINS,THERAPEUTIC TABLET PO SCH (08:13)
[2020-07-18] MEDS: ENOXAPARIN SODIUM 40 MG/0.4 ML DISP.SYRIN SQ SCH (08:15)
[2020-07-18 09:19] LABS: CREATININE 1.2 mg/dL (0.6-1.3); POTASSIUM 4.1 mmol/L (3.5-5.1)
[2020-07-18 12:00] VITALS: BP 107/71
[2020-07-18] MEDS: VANCOMYCIN IV 1,250 MG in IV DEXTROSE 5% 250 ML IV SCH ×2 (12:29→23:59)
[2020-07-18] MEDS ORDERED: IV NS 1000 ML 1,000 ML IV ONE (13:30)
[2020-07-18 16:00] VITALS: BP 118/62
[2020-07-18 20:00] VITALS: BP 119/78
[2020-07-18] MEDS: CEFTRIAXONE 2 G in IV DEXTROSE 5% 100 ML IV SCH (20:52)
[2020-07-19] MEDS: HYDROMORPHONE 1 MG/1 ML DISP.SYRIN IV PRN ×3 (01:58→10:32)
[2020-07-19] MEDS: MULTIVITAMINS,THERAPEUTIC TABLET PO SCH (07:59)
[2020-07-19] MEDS: ENOXAPARIN SODIUM 40 MG/0.4 ML DISP.SYRIN SQ SCH (08:00)
[2020-07-19 08:01] LABS: BASOPHILS % (AUTO) 0.5 % (0.0-2.0); CREATININE 1.1 mg/dL (0.6-1.3); EOSINOPHILS # (AUTO) 0.6 K/uL (0.0-0.7); EOSINOPHILS % (AUTO) 6.9 % (0.0-7.0); HEMATOCRIT 40.5 % (36.7-47.1); HEMOGLOBIN 13.5 g/dL (12.5-16.3); LYMPHOCYTES # (AUTO) 3.2 K/uL (20.0-40.0); LYMPHOCYTES % (AUTO) 35.9 % (20.5-51.5); MEAN CORPUSCULAR HGB CONC 33 g/dL (32.5-36.3); MEAN CORPUSCULAR VOLUME 81.4 fL (73.0-96.2); MONOCYTES # (AUTO) 0.7 K/uL (2.0-10.0); MONOCYTES % (AUTO) 7.9 % (0.0-11.0); NEUTROPHILS # (AUTO) 4.3 K/uL (1.8-8.9); NEUTROPHILS % (AUTO) 48.8 % (38.5-71.5); PLATELET COUNT (AUTO) 390 K/uL (152-348); POTASSIUM 4.3 mmol/L (3.5-5.1); RED BLOOD CELL COUNT(AUTO) 4.98 MIL/uL (4.06-5.63); WHITE BLOOD COUNT (AUTO) 8.8 K/uL (3.6-10.2)
[2020-07-19] MEDS ORDERED: CEFT2FRO2 IV (08:50)
[2020-07-19] MEDS ORDERED: VANC1.5P12 IV (08:50)
[2020-07-19] MEDS: VANCOMYCIN IV 1,250 MG in IV DEXTROSE 5% 250 ML IV SCH (10:55)
[2020-07-19 12:14] VITALS: BP 126/76
--- NOTE | 2020-07-19 13:27 | NUR ---
dc orders received noted and carried out.dc instruction and education given to the pt.pt left the facility via private car with midline for iv antibiotic in stable condition
== END 2020-07-19 01:30 | disposition home health service (06) | DRG 501 ==
LOC: ER 23:22 → TRANSITION 07-16 01:57 → MEDSURG3 07-16 01:58
PROVIDERS: ADMIT Nurse Practitioner Acute Care; ATTEND Nurse Practitioner Acute Care
PROC: 05HY33Z Insertion of Infusion Device into Upper Vein, Percutaneous Approach (ICD-10-PCS; principal; 2020-07-18)
DX: N49.2 Inflammatory disorders of scrotum (principal); K51.90 Ulcerative colitis, unspecified, without complications; E11.9 Type 2 diabetes mellitus without complications; E66.9 Obesity, unspecified; Z90.49 Acquired absence of other specified parts of digestive tract; Z93.2 Ileostomy status; Z68.32 Body mass index [BMI] 32.0-32.9, adult; Z20.822 Contact with and (suspected) exposure to COVID-19
CPT/HCPCS: 36415; 76870; 83735; 84100; 85025; 85730; 87040; 87086; A4663; G0378; J0696; J1170; J1650; J2405; J3370; J7030; J7060

== ENCOUNTER 2020-07-27 22:35 | Emergency (ER) | payer OTHER ==
[~2020-07-27] VITALS: Ht 188 cm; Wt 122.5 kg
[~2020-07-27 22:35] MED LIST changes: +CEFT2FRO2 IV; -HYDR-4354 PO; -LINE600T12 PO; +MULT-853; +VANC1.5P12 IV
--- NOTE | 2020-07-27 23:00 | NUR ---
Dr Johnson with patient for [facility].
[2020-07-27] MEDS ORDERED: HYDROCODONE/APAP 5-325MG TABLET PO ONE (23:45)
[2020-07-27] MEDS ORDERED: HYDROCODONE/APAP 5-325MG TABLET ONE (23:46)
[2020-07-27 23:49] LABS: BASOPHILS # (AUTO) 0.1 K/uL (0.0-8.0); BASOPHILS % (AUTO) 0.7 % (0.0-2.0); EOSINOPHILS # (AUTO) 0.5 K/uL (0.0-0.7); EOSINOPHILS % (AUTO) 4.2 % (0.0-7.0); HEMATOCRIT 41.3 % (36.7-47.1); HEMOGLOBIN 13.5 g/dL (12.5-16.3); LYMPHOCYTES # (AUTO) 3.7 K/uL (20.0-40.0); LYMPHOCYTES % (AUTO) 32.4 % (20.5-51.5); MEAN CORPUSCULAR HEMOGLOBIN 26.6 uug (23.8-33.4); MEAN CORPUSCULAR HGB CONC 33 g/dL (32.5-36.3); MEAN CORPUSCULAR VOLUME 81.4 fL (73.0-96.2); MONOCYTES # (AUTO) 0.7 K/uL (2.0-10.0); MONOCYTES % (AUTO) 6.2 % (0.0-11.0); NEUTROPHILS # (AUTO) 6.4 K/uL (1.8-8.9); NEUTROPHILS % (AUTO) 56.5 % (38.5-71.5); PLATELET COUNT (AUTO) 403 K/uL (152-348); RED BLOOD CELL COUNT(AUTO) 5.07 MIL/uL (4.06-5.63); WHITE BLOOD COUNT (AUTO) 11.3 K/uL (3.6-10.2)
[2020-07-27 23:50] LABS: CREATININE 1.3 mg/dL (0.6-1.3); POTASSIUM 3.6 mmol/L (3.5-5.1)
[2020-07-28] MEDS ORDERED: SWABABLE VALVE TRANSFER SET EA MC ONE (00:44)
[2020-07-28] MEDS ORDERED: IV NORMAL SALINE 250 ML IV ONE (00:44)
[2020-07-28] MEDS ORDERED: IOHEXOL 350 100 ML INFUS..BTL ONE (00:44)
[2020-07-28] MEDS ORDERED: OXYCODONE/APAP 5-325 MG TABLET PO ONE (02:15)
[2020-07-28] MEDS ORDERED: MORPHINE SULFATE 4 MG/1 ML DISP.SYRIN IV ONE (03:15)
[2020-07-28] MEDS ORDERED: ONDANSETRON 4 MG/2 ML VIAL IV ONE (03:15)
[2020-07-28] MEDS ORDERED: MORPHINE SULFATE 4 MG/1 ML DISP.SYRIN ONE (03:24)
[2020-07-28] MEDS ORDERED: ONDANSETRON 4 MG/2 ML VIAL ONE (03:24)
--- NOTE | 2020-07-28 04:14 | NUR ---
Pt has been cleared for DC by MD. IV removed. Catheter intact and site benign. Pressure and 4x4 gauze applied to site. No bleeding noted.Patient discharged to home in stable condition. Written and verbal after care instructions given. Copies of all lab results and imaging reports provided to patient. Patient verbalizes understanding of instructions. Stressed follow up or return to ER for worsening s/s. Ambulated out of ER in steady gait.
[2020-07-28 04:15] VITALS: BP 135/75
== END 2020-07-28 04:16 | disposition home or self-care (01) ==
LOC: ER 22:38
DX: R07.9 Chest pain, unspecified (principal); I80.8 Phlebitis and thrombophlebitis of other sites; J98.11 Atelectasis; D72.829 Elevated white blood cell count, unspecified; D47.3 Essential (hemorrhagic) thrombocythemia; R79.1 Abnormal coagulation profile; K51.90 Ulcerative colitis, unspecified, without complications; Z90.49 Acquired absence of other specified parts of digestive tract
CPT/HCPCS: 36415; 71045; 71275; 80048; 84484; 85025; 85379; 85730; 93005; 93971; 96374; 96375; 99285; J2270; J2405; Q9967; 70030-TC; A4663; J7050

== ENCOUNTER 2020-11-21 20:34 | Emergency (ER) | payer OTHER ==
[~2020-11-21] VITALS: Ht 188 cm; Wt 108.9 kg
[~2020-11-21 20:34] MED LIST changes: -CEFT2FRO2 IV; +CIPR500T5 PO; +METR500T PO; -VANC1.5P12 IV
--- NOTE | 2020-11-21 21:42 | NUR ---
Dr. Jain at bedside for MSE.
[2020-11-21] MEDS ORDERED: CEPH500C2 PO (21:47)
== END 2020-11-21 22:14 | disposition home or self-care (01) ==
LOC: ER 20:43
DX: N49.2 Inflammatory disorders of scrotum (principal); Z90.49 Acquired absence of other specified parts of digestive tract; K51.90 Ulcerative colitis, unspecified, without complications
CPT/HCPCS: A4663

== ENCOUNTER 2021-01-04 21:33 | Emergency (ER) | payer OTHER ==
[~2021-01-04] VITALS: Ht 188 cm; Wt 106.6 kg
[~2021-01-04 21:33] MED LIST changes: +CEPH500C2 PO
--- NOTE | 2021-01-04 21:46 | NUR ---
Patient presents to ER with c/o of Lt shoulder and Lt side pain after falling from a 5 foot ladder. NAD noted. Awaiting MD alvarado.
[2021-01-04] MEDS ORDERED: CARISOPRODOL 350 MG TABLET PO ONE (22:15)
[2021-01-04] MEDS ORDERED: HYDROCODONE/APAP 10-325 MG TABLET PO ONE (22:15)
[2021-01-04] MEDS ORDERED: HYDROCODONE/APAP 10-325 MG TABLET ONE (22:24)
[2021-01-04] MEDS ORDERED: CARISOPRODOL 350 MG TABLET ONE (22:25)
--- NOTE | 2021-01-04 22:29 | NUR ---
Per Dr. Wolfe pt stable for discharge. Pt states he is taking an uber home. DC instructions and prescriptions given and reviewed with patient. Verbalized understanding. Left ER in stable condition.
== END 2021-01-04 22:30 | disposition home or self-care (01) ==
LOC: ER 21:35
DX: M25.512 Pain in left shoulder (principal); M54.2 Cervicalgia; M25.552 Pain in left hip; W11.XXXA Fall on and from ladder, initial encounter; Y92.89 Other specified places as the place of occurrence of the external cause; K51.90 Ulcerative colitis, unspecified, without complications; Z90.49 Acquired absence of other specified parts of digestive tract
CPT/HCPCS: 72170; 73030; A4663

== ENCOUNTER 2021-01-19 14:50 | Emergency (ER) | payer OTHER ==
[~2021-01-19] VITALS: Ht 188 cm; Wt 108.9 kg
--- NOTE | 2021-01-19 15:32 | NUR ---
Crutches dispensed. Pt was instructed on proper use of crutches. Patient was able to demonstrate correct use of crutches.
[2021-01-19] MEDS ORDERED: HYDR-3980 PO (15:40)
--- NOTE | 2021-01-19 15:44 | NUR ---
Patient discharged to home in stable condition. Written and verbal after care instructions given to patient. Patient verbalized understanding & compliance of instructions. Stressed follow up with orthopedic doctor or return to ER for worsening s/s.
== END 2021-01-19 15:44 | disposition home or self-care (01) ==
LOC: ER 14:51
DX: S89.92XA Unspecified injury of left lower leg, initial encounter (principal); M25.462 Effusion, left knee; W18.30XA Fall on same level, unspecified, initial encounter; Y92.320 Baseball field as the place of occurrence of the external cause; R03.0 Elevated blood-pressure reading, without diagnosis of hypertension; Z90.49 Acquired absence of other specified parts of digestive tract; K51.90 Ulcerative colitis, unspecified, without complications
CPT/HCPCS: A4663

== ENCOUNTER 2021-03-02 13:58 | Emergency (ER) | payer OTHER ==
[~2021-03-02] VITALS: Ht 188 cm; Wt 108.9 kg
[~2021-03-02 13:58] MED LIST changes: +HYDR-3980 PO
[2021-03-02 14:27] LABS: *BILIRUBIN,URIN NEGATIVE (NEGATIVE); *CLARITY,URINE CLEAR (CLEAR); *COLOR,URINE YELLOW (YELLOW); *KETONES,URINE NEGATIVE (NEGATIVE); *UROBILINOGEN,URINE 0.2 E.U./dl (NORMAL); LEUKOCYTE ESTERASE ,URINE NEGATIVE (NEGATIVE); NITRITE, URINE NEGATIVE (NEGATIVE); PH,URINE 6.5 (5.0-8.0); UGLUCOSE NEGATIVE (NEGATIVE)
[2021-03-02 14:28] LABS: *BLOOD, URINE TRACE (NEGATIVE)
[2021-03-02 14:39] LABS: BACTERIA,URINE NONE SEEN /HPF (NONE SEEN); SQUAMOUS EPITHELIAL CELL,UR NONE SEEN /HPF (NONE SEEN); WBC,URINE 0-3 /HPF (0-3)
[2021-03-02 14:45] LABS: HEMATOCRIT 38.4 % (36.7-47.1); MEAN CORPUSCULAR HEMOGLOBIN 28.3 uug (23.8-33.4); MEAN CORPUSCULAR VOLUME 82.6 fL (73.0-96.2); PLATELET COUNT (AUTO) 339 K/uL (152-348)
[2021-03-02 14:48] LABS: CREATININE 0.9 mg/dL (0.6-1.3); POTASSIUM 4.2 mmol/L (3.5-5.1)
[2021-03-02 14:54] LABS: BILIRUBIN,DIRECT 0.1 mg/dL (0.0-0.2); BILIRUBIN,TOTAL 0.7 mg/dL (0.2-1.0); TOTAL PROTEIN, SERUM 7.7 g/dL (6.4-8.2)
--- NOTE | 2021-03-02 15:15 | NUR ---
Patient discharged to home in stable condition. Written and verbal after care instructions given. Patient verbalizes understanding of instructions. Stressed follow up or return to ER for worsening s/s.
== END 2021-03-02 15:15 | disposition home or self-care (01) ==
LOC: ER 14:00
DX: M54.9 Dorsalgia, unspecified (principal); G89.29 Other chronic pain; R07.9 Chest pain, unspecified; K50.90 Crohn's disease, unspecified, without complications; Z90.49 Acquired absence of other specified parts of digestive tract
CPT/HCPCS: 36415; 70030-TC; 71045; 83690; 85025; 93005; A4663

== ENCOUNTER 2021-04-27 21:27 | Inpatient (IN) | payer OTHER ==
[~2021-04-27] VITALS: Ht 188 cm; Wt 111.1 kg
--- NOTE | 2021-04-27 22:40 | NUR ---
Dr. Umaña at bedside for MSE.
[2021-04-27] MEDS ORDERED: VANCOMYCIN 1G/D5W 200 ML PIGGYBACK IV ONE (23:00)
[2021-04-27 23:02] LABS: HEMATOCRIT 39.3 % (36.7-47.1); MEAN CORPUSCULAR HEMOGLOBIN 27.9 uug (23.8-33.4); PLATELET COUNT (AUTO) 417 K/uL (152-348)
[2021-04-27 23:07] LABS: CREATININE 1.2 mg/dL (0.6-1.3); POTASSIUM 3.8 mmol/L (3.5-5.1)
[2021-04-27 23:13] LABS: BILIRUBIN,DIRECT 0.1 mg/dL (0.0-0.2); BILIRUBIN,TOTAL 0.3 mg/dL (0.2-1.0)
[2021-04-27] MEDS ORDERED: FENTANYL CITRATE 100 MCG/2 ML AMPUL IV ONE (23:15)
[2021-04-27] MEDS ORDERED: KETOROLAC TROMETHAMINE 30 MG INJ IVP ONE (23:15)
[2021-04-27] MEDS ORDERED: VANCOMYCIN IV 200 ML ONE (23:17)
[2021-04-27] MEDS ORDERED: FENTANYL CITRATE 100 MCG/2 ML AMPUL ONE (23:24)
[2021-04-27] MEDS ORDERED: KETOROLAC TROMETHAMINE 30 MG INJ ONE (23:24)
[2021-04-27 23:25] LABS: *BILIRUBIN,URIN NEGATIVE (NEGATIVE); *BLOOD, URINE NEGATIVE (NEGATIVE); *CLARITY,URINE CLEAR (CLEAR); *COLOR,URINE YELLOW (YELLOW); *KETONES,URINE NEGATIVE (NEGATIVE); *UROBILINOGEN,URINE 0.2 E.U./dl (NORMAL); LEUKOCYTE ESTERASE ,URINE NEGATIVE (NEGATIVE); NITRITE, URINE NEGATIVE (NEGATIVE); PH,URINE 8.5 (5.0-8.0); UGLUCOSE NEGATIVE (NEGATIVE)
[2021-04-27 23:27] LABS: TOTAL PROTEIN, SERUM 3.9 g/dL (6.4-8.2)
--- NOTE | 2021-04-28 00:15 | NUR ---
Ultrasound at bedside.
--- NOTE | 2021-04-28 01:19 | NUR ---
Called [facility] to page Julienne Martinez.
--- NOTE | 2021-04-28 01:21 | NUR ---
Dr. Umaña on panel call with Julienne Martinez NP.
[2021-04-28] MEDS ORDERED: ONDANSETRON 4 MG/2 ML VIAL IV PRN (01:30)
[2021-04-28] MEDS ORDERED: ACETAMINOPHEN 325 MG TABLET PO PRN (01:30)
[2021-04-28] MEDS ORDERED: Z GUARD REMEDY PASTE 57 GM TUBE TOP PRN (01:30)
--- NOTE | 2021-04-28 03:42 | NUR ---
Report given to Mary BENNETT Medsurg.
--- NOTE | 2021-04-28 03:45 | NUR ---
Received report from ER NurseErnie.
--- NOTE | 2021-04-28 04:15 | NUR ---
Received patient via wheelchair at 04:15AM. AOX4. Established nurse-patient rapport. Oriented patient to room, bed and call light button. IV site on L FA, 20 gauge, is intact and patent. On room air, saturating at 99%. VS are WNL. Patient denies SOB and dizziness, however, reports throbbing pain on the scrotum. Safety and comfort measures initiated. Will continue to monitor.
[2021-04-28 04:32] VITALS: BP 126/64
[2021-04-28] MEDS ORDERED: HYDROCODONE/APAP 10-325 MG TABLET PO PRN (04:45)
--- NOTE | 2021-04-28 06:57 | NUR ---
Patient complained of throbbing scrotal pain, notified FILTER TENDER regional construction manager. FILTER TENDER ordered [place] 10-325mg, PO Q6H PRN. Gave pt [place] as ordered. Will continue to monitor.
--- NOTE | 2021-04-28 07:30 | NUR ---
patient is alert/orientedx4, no concern at this time. kept call light within reach. will continue to monitor.
[2021-04-28] MEDS: VANCOMYCIN IV 1,500 MG in IV DEXTROSE 5% 500 ML IV SCH ×2 (08:59→20:25)
[2021-04-28] MEDS: HYDROMORPHONE 1 MG/1 ML DISP.SYRIN IV PRN ×3 (10:42→23:30)
[2021-04-28 11:55] VITALS: BP 110/59
[2021-04-28 16:26] VITALS: BP 114/75
--- NOTE | 2021-04-28 18:28 | NUR ---
Patient stated [place] was not effective. Dr Ortega made aware, order dilaudid. patient received 2 prn pain medication as ordered. Kept call light within reach. All meds given as ordered. Kept comfortable. Will endorse to the next shift as for continuity of care.
--- NOTE | 2021-04-28 18:40 | NUR ---
patient reported a lump on the right lower butt cheek, no pain identified, Dr Ortega made aware. Will endorse to the next shift for continuity of care.
--- NOTE | 2021-04-28 18:54 | NUR ---
Per Dr. Ortega, patient will be checked tomorrow. Order Colace 100mg daily for constipation. Will endorse to the next shift.
[2021-04-28 20:00] VITALS: BP 125/72
[2021-04-28] MEDS: DOCUSATE SODIUM 100 MG CAPSULE PO SCH (20:25)
--- NOTE | 2021-04-28 23:36 | NUR ---
resting in bed upon initial rounds. AAOx4 Ambulatory ad katty. Admitted for scrotal cellulitis. On IV Vancomycin as ordered, given via left arm heplock. Needs attended. Tolerated meds well. Medicated for pain as needed. Will monitor for effectiveness. Continent of bowel and bladder. Voiding freely. BM noted this shift.
[2021-04-29 04:00] VITALS: BP 143/78
[2021-04-29] MEDS: MAGNESIUM HYDROXIDE 30 ML LIQUID UDC PO PRN ×2 (04:52→20:28)
[2021-04-29] MEDS: HYDROMORPHONE 1 MG/1 ML DISP.SYRIN IV PRN ×5 (05:28→22:57)
[2021-04-29 06:37] LABS: HEMATOCRIT 37.3 % (36.7-47.1); MEAN CORPUSCULAR HEMOGLOBIN 27.5 uug (23.8-33.4); MEAN CORPUSCULAR VOLUME 82.8 fL (73.0-96.2); PLATELET COUNT (AUTO) 366 K/uL (152-348)
[2021-04-29 06:51] LABS: CREATININE 1.2 mg/dL (0.6-1.3); MAGNESIUM 2.2 mg/dL (1.8-2.4); POTASSIUM 3.8 mmol/L (3.5-5.1)
--- NOTE | 2021-04-29 08:30 | NUR ---
PATIENT REPORTED Q6HR PRN DILAUDID IS NOT EFFECTIVE. DR MOON MADE AWARE, ORDER TO INCREASE TO Q4HR PRN. NO OTHER CONCERN IDENTIFIED AT THIS TIME. WILL CONTINUE TO MONITOR PATIENT.
[2021-04-29] MEDS: VANCOMYCIN IV 1,500 MG in IV DEXTROSE 5% 500 ML IV SCH ×2 (08:57→20:29)
[2021-04-29 11:36] VITALS: BP 126/70
[2021-04-29 15:57] VITALS: BP 118/59
--- NOTE | 2021-04-29 19:00 | NUR ---
PATIENT REPORTED SCROTAL PAIN 8/10 Q4HR . PRN DILAUDID 1 MG GIVEN PER MD ORDER MEDS EFFECTIVE. NO OTHER CONCERN IDENTIFIED AT THIS TIME. WILL CONTINUE TO MONITOR. PATIENT CONTINUE ON ATB IV VANCOMYCIN JAVIER NG SCHEDULE FOR TODAY AT 1900 ALL NEEDS ATTENDED.
--- NOTE | 2021-04-29 19:00 | NUR ---
PATIENT DENIES ANY OTHER CONCERN DURING THE SHIFT. ALL NEEDS ATTENDED. DUE MEDS GIVEN. KEPT SAFE AND COMFORTABLE. WILL CONTINUE PLAN OF CARE.
[2021-04-29 20:00] VITALS: BP 127/77
[2021-04-29] MEDS: DOCUSATE SODIUM 100 MG CAPSULE PO SCH (20:26)
[2021-04-29] MEDS: CULTURELLE CAPSULE PO SCH (20:31)
[2021-04-29] MEDS: PIPERACILLIN SODIUM/TAZOBACTAM 3.375 G in IV DEXTROSE 5% 50 ML IV SCH (22:57)
[2021-04-30] MEDS: HYDROMORPHONE 1 MG/1 ML DISP.SYRIN IV PRN ×6 (02:58→23:06)
[2021-04-30 04:00] VITALS: BP 135/81
[2021-04-30] MEDS: PIPERACILLIN SODIUM/TAZOBACTAM 3.375 G in IV DEXTROSE 5% 50 ML IV SCH ×4 (05:47→23:36)
--- NOTE | 2021-04-30 06:20 | NUR ---
PATIENT WAS GIVEN PRN PAIN MEDICATION Q4HR. ALL DUE MEDS GIVEN ORDERED. NO OTHER CONCERN IDENTIFIED DURING THE SHIFT. KEPT COMFORTABLE. CALL LIGHT WITHIN REACH. WILL ENDORSE TO THE NEXT SHIFT FOR CONTINUITY OF CARE.
--- NOTE | 2021-04-30 08:30 | NUR ---
NSG: Received patient alert/orientedx4, no c/o pain or discomfort at this time. kept call light within reach. will continue to monitor.
[2021-04-30] MEDS: CULTURELLE CAPSULE PO SCH ×2 (08:49→21:21)
[2021-04-30] MEDS: VANCOMYCIN IV 1,500 MG in IV DEXTROSE 5% 500 ML IV SCH ×2 (09:30→20:42)
[2021-04-30 12:00] VITALS: BP 121/75
--- NOTE | 2021-04-30 14:48 | NUR ---
wound culture not collected due to patient refused.
[2021-04-30 16:00] VITALS: BP 137/86
--- NOTE | 2021-04-30 18:47 | NUR ---
NSG: patient is alert/orientedx4 resting on bed comfortably. no concern at this time. kept call light within reach. will continue to monitor.
[2021-04-30 20:00] VITALS: BP 117/77
[2021-04-30] MEDS: DOCUSATE SODIUM 100 MG CAPSULE PO SCH (21:22)
--- NOTE | 2021-04-30 23:10 | NUR ---
at 2306h Dilaudid 1mg/ml prn given for 9/10pain. Pt tolerated it well. Will continue to monitor.
--- NOTE | 2021-05-01 03:00 | NUR ---
Patient is awake. Made aware of wound culture orders. Patient stated he spoke to Dr. Barajas and made him aware he does not have an open wound and there is no wound to take a swab from. Patient states it is redness only and refuses to show scrotum site to this nurse.
[2021-05-01] MEDS: HYDROMORPHONE 1 MG/1 ML DISP.SYRIN IV PRN ×6 (03:05→23:34)
--- NOTE | 2021-05-01 03:35 | NUR ---
Dilaudid 1mg administered via IV for scrotum pain 02/18. Patient reports medication is effective at this time, 08/21.
[2021-05-01 04:00] VITALS: BP 108/60
[2021-05-01] MEDS: PIPERACILLIN SODIUM/TAZOBACTAM 3.375 G in IV DEXTROSE 5% 50 ML IV SCH ×4 (05:29→23:33)
--- NOTE | 2021-05-01 06:18 | NUR ---
PT SLEPT INTERMITTENTLY. PT IN NO ACUTE DISTRESS. PRESCRIBED MEDICATION GIVEN AND PT TOLERATED IT WELL.PT GIVEN DILAUDID 1MG AT 1927H, 2336H,0335H FOR SCROTAL PAIN. PT TOLERATED IT WELL. IV INTACT.SAFETY AND COMFORT PROVIDED.ALL NEEDS ARE MET. ALL NEEDS ARE MET. PT STATED HE DOESN'T WANT AND NEED FOR US TO COLLECT WOUND CULTURE AND HE STATED DR. NAVA. WILL CONTINUE TO MONITOR.
[2021-05-01 06:47] LABS: CREATININE 1.1 mg/dL (0.6-1.3); MAGNESIUM 2.3 mg/dL (1.8-2.4); PHOSPHOROUS 3.9 mg/dL (2.5-4.9); POTASSIUM 4.1 mmol/L (3.5-5.1)
[2021-05-01 06:49] LABS: HEMATOCRIT 38.5 % (36.7-47.1); MEAN CORPUSCULAR HEMOGLOBIN 27.7 uug (23.8-33.4); MEAN CORPUSCULAR VOLUME 82.8 fL (73.0-96.2); PLATELET COUNT (AUTO) 330 K/uL (152-348)
[2021-05-01 07:02] LABS: EOSINOPHILS % (MANUAL) 3 % (0-8); LYMPHOCYTES % (MANUAL) 28 % (20-40); MONOCYTES % (MANUAL) 14 % (2-10); NEUTROPHILS % (MANUAL) 55 % (42-75)
--- NOTE | 2021-05-01 07:02 | NUR ---
0702H DILAUDID PRN GIVEN FOR 8/10 SCROTUM PAIN. PT TOLERATED IT WELL. WILL CONTINUE TO MONITOR.
[2021-05-01] MEDS: VANCOMYCIN IV 1,500 MG in IV DEXTROSE 5% 500 ML IV SCH ×2 (08:36→19:39)
[2021-05-01] MEDS: CULTURELLE CAPSULE PO SCH ×2 (08:36→20:14)
--- NOTE | 2021-05-01 11:00 | NUR ---
received report on pt, a/ox4, on room air,no signs of distress, no reports of pain at this time. pt given Dilaudid per previous rn. call light within reach, will continue with plan of care.
--- NOTE | 2021-05-01 11:08 | NUR ---
PT IN NO ACUTE DISTRESS. IV INTACT. AT PRESCRIBED MEDICATION GIVEN AND PT TOLERATED IT WELL.AT SAFETY AND COMFORT PROVIDED. ALL NEEDS ARE MET. DILAUDID PRN GIVEN TO PT FOR 8/10 PAIN SCALE. PT TOLERATED IT WELL. WILL ENDORSE TO INCOMING NURSE FOR CONTINUITY OF CARE.
[2021-05-01 11:11] VITALS: BP 110/65
[2021-05-01 15:28] VITALS: BP 130/76
[2021-05-01] MEDS: MAGNESIUM HYDROXIDE 30 ML LIQUID UDC PO PRN (18:47)
[2021-05-01 20:00] VITALS: BP 112/77
[2021-05-01] MEDS: DOCUSATE SODIUM 100 MG CAPSULE PO SCH (20:14)
[2021-05-02 04:00] VITALS: BP 117/74
[2021-05-02] MEDS: PIPERACILLIN SODIUM/TAZOBACTAM 3.375 G in IV DEXTROSE 5% 50 ML IV SCH ×3 (05:17→17:39)
[2021-05-02] MEDS: HYDROMORPHONE 1 MG/1 ML DISP.SYRIN IV PRN ×5 (05:17→21:45)
--- NOTE | 2021-05-02 05:37 | NUR ---
Pt slept intermittently throughout the night. Dilaudid for pain, pt tolerated well. Denies SOB. No acute distress noted. IV site intact. No other issues or concerns at this time, will endorse to day shift.
[2021-05-02] MEDS: CULTURELLE CAPSULE PO SCH ×2 (08:30→20:00)
[2021-05-02] MEDS: VANCOMYCIN IV 1,500 MG in IV DEXTROSE 5% 500 ML IV SCH ×2 (08:58→20:03)
[2021-05-02 11:12] VITALS: BP 116/63
[2021-05-02 15:58] VITALS: BP 115/68
[2021-05-02 20:00] VITALS: BP 125/78
[2021-05-02] MEDS: DOCUSATE SODIUM 100 MG CAPSULE PO SCH (20:00)
[2021-05-02] MEDS: MAGNESIUM HYDROXIDE 30 ML LIQUID UDC PO PRN (20:46)
--- NOTE | 2021-05-02 20:55 | NUR ---
Received patient lying in bed, AOX4. Patient denies SOB, chest pain or dizziness. IV site on L upper arm, is patent and intact. Safety and comfort measures initiated. Will continue to monitor.
[2021-05-03] MEDS: PIPERACILLIN SODIUM/TAZOBACTAM 3.375 G in IV DEXTROSE 5% 50 ML IV SCH ×4 (00:04→20:46)
[2021-05-03] MEDS: HYDROMORPHONE 1 MG/1 ML DISP.SYRIN IV PRN ×6 (01:56→20:06)
[2021-05-03 04:00] VITALS: BP 106/61
--- NOTE | 2021-05-03 06:41 | NUR ---
Pt slept intermittently throughout the night. All medications were given as ordered. Dilaudid was given for moderate to severe scrotal pain, pt tolerated well. Denies SOB at this time. No acute distress noted. IV site remains patent and intact. Safety and comfort measures maintained. Will endorse to day shift.
[2021-05-03 07:44] LABS: CREATININE 1.5 mg/dL (0.6-1.3); POTASSIUM 3.9 mmol/L (3.5-5.1)
--- NOTE | 2021-05-03 08:30 | NUR ---
Received pt from crime lab analyst RN, he is in bed asleep, no signs of acute distress. Current Vancomycin trough drawn at 0654 is 25.3. Vancomycin dose due at 0900 was discontinued. Call light in reach, comfort measures provided to pt. Will continue to monitor pt.
[2021-05-03] MEDS: CULTURELLE CAPSULE PO SCH ×2 (08:58→20:46)
[2021-05-03] MEDS: IV NS 1000 ML 1,000 ML IV PRN (10:34)
[2021-05-03 10:55] VITALS: BP 117/69
--- NOTE | 2021-05-03 11:50 | NUR ---
Spoke to pharmacy, notified of Vanco trough level, pharmacy advised to administer the 1400 Vancomycin and they already adjusted. Next trough will be drawn on 05/05/21.
[2021-05-03 15:01] VITALS: BP 108/67
[2021-05-03] MEDS: VANCOMYCIN IV 1,500 MG in IV DEXTROSE 5% 500 ML IV SCH (15:09)
[2021-05-03 20:00] VITALS: BP 136/76
[2021-05-03] MEDS: MAGNESIUM HYDROXIDE 30 ML LIQUID UDC PO PRN (20:46)
[2021-05-03] MEDS: DOCUSATE SODIUM 100 MG CAPSULE PO SCH (20:46)
[2021-05-04] MEDS: HYDROMORPHONE 1 MG/1 ML DISP.SYRIN IV PRN ×6 (00:02→22:07)
[2021-05-04] MEDS: PIPERACILLIN SODIUM/TAZOBACTAM 3.375 G in IV DEXTROSE 5% 50 ML IV SCH ×4 (01:00→17:19)
[2021-05-04 04:00] VITALS: BP 134/79
[2021-05-04] MEDS: IV NS 1000 ML 1,000 ML IV PRN (05:14)
--- NOTE | 2021-05-04 06:48 | NUR ---
Pt rested well in betweemn care; c/o pain; dilaudid given 1mg every 4 hours per pt; assited with needs; newRIGHT upper arm midline; PICC line RN removed VIOLET arm midline.
[2021-05-04 07:10] LABS: HEMATOCRIT 36.6 % (36.7-47.1); MEAN CORPUSCULAR HEMOGLOBIN 27.4 uug (23.8-33.4); MEAN CORPUSCULAR VOLUME 82.6 fL (73.0-96.2); PLATELET COUNT (AUTO) 360 K/uL (152-348)
[2021-05-04 07:49] LABS: BILIRUBIN,TOTAL 0.4 mg/dL (0.2-1.0); CREATININE 1.4 mg/dL (0.6-1.3); MAGNESIUM 2.7 mg/dL (1.8-2.4); POTASSIUM 3.8 mmol/L (3.5-5.1); TOTAL PROTEIN, SERUM 7.3 g/dL (6.4-8.2)
--- NOTE | 2021-05-04 07:50 | NUR ---
received in bed resting but easily arousable. no acute distress noted. verbalized he feels better but still with some residual ache in scrotal area. iv intact and patent. asked for warm blanket and was provided. bed lowest siderails up x2. call light and personal belongings in reach. will cont to monitor.
[2021-05-04] MEDS: VANCOMYCIN IV 1,500 MG in IV DEXTROSE 5% 500 ML IV SCH (08:35)
[2021-05-04] MEDS: CULTURELLE CAPSULE PO SCH ×2 (08:38→20:26)
[2021-05-04 10:53] VITALS: BP 140/78
--- NOTE | 2021-05-04 11:25 | NUR ---
per pharmacy vanco trough tonight at 1am and to hold vanco dose at 2am if trough level is 20 or above. will endorse accordingly.
[2021-05-04 16:11] VITALS: BP 128/76
--- NOTE | 2021-05-04 19:30 | NUR ---
Received patient in bed, AOX4. No acute distress noted at this time. Safety and comfort measure initiated. Call light button and bed side table within reach.
[2021-05-04 20:00] VITALS: BP 126/64
[2021-05-04] MEDS: MAGNESIUM HYDROXIDE 30 ML LIQUID UDC PO PRN (20:26)
[2021-05-04] MEDS: DOCUSATE SODIUM 100 MG CAPSULE PO SCH (20:26)
[2021-05-05] MEDS: PIPERACILLIN SODIUM/TAZOBACTAM 3.375 G in IV DEXTROSE 5% 50 ML IV SCH ×3 (01:01→11:07)
[2021-05-05] MEDS: HYDROMORPHONE 1 MG/1 ML DISP.SYRIN IV PRN ×4 (02:27→15:18)
[2021-05-05] MEDS: VANCOMYCIN IV 1,500 MG in IV DEXTROSE 5% 500 ML IV SCH (02:36)
--- NOTE | 2021-05-05 03:05 | NUR ---
Patient complained of pain at L upper arm, assessed site, Midline on left upper arm was infiltrated. Removed midline and reinserted peripheral IV on right hand, gauge 20. Addendum: 05/05/21 at 0655 by CATARINO SWANN RN Patient complained of pain at Right upper arm, assessed site, Midline on left upper arm was infiltrated. Removed midline and reinserted peripheral IV on left hand, gauge 20.
[2021-05-05 04:00] VITALS: BP 136/84
[2021-05-05 06:44] LABS: HEMATOCRIT 34.9 % (36.7-47.1); MEAN CORPUSCULAR HEMOGLOBIN 27.7 uug (23.8-33.4); MEAN CORPUSCULAR VOLUME 82.9 fL (73.0-96.2); PLATELET COUNT (AUTO) 357 K/uL (152-348)
--- NOTE | 2021-05-05 06:53 | NUR ---
Patient slept intermittently through the night. Complained pain at scrotal area, Dilaudid 1mg was given and somewhat effective. All due medications were given as ordered. IV on left hand is intact and patent. V/S are within normal limits. Safety and comfort measures maintained. Will endorse to incoming nurse.
[2021-05-05 07:13] LABS: CREATININE 1.5 mg/dL (0.6-1.3); MAGNESIUM 2.6 mg/dL (1.8-2.4); PHOSPHOROUS 3.5 mg/dL (2.5-4.9); POTASSIUM 3.9 mmol/L (3.5-5.1)
[2021-05-05] MEDS: CULTURELLE CAPSULE PO SCH (09:48)
--- NOTE | 2021-05-05 10:00 | NUR ---
BETITO walker saw and examined the patient. still c/o of pain but less swelling and redness noted on scrotal area. no resp distress. denies n/v. on iv atb tolerated. no adverse/allergic reaction noted. bed at lowest siderails up x2. call light in reach. will cont to monitor.
[2021-05-05 11:32] VITALS: BP 135/79
[2021-05-05] MEDS: IV NS 1000 ML 1,000 ML IV PRN (13:16)
[2021-05-05] MEDS ORDERED: AMOX1TAB15 PO (14:13)
[2021-05-05] MEDS ORDERED: LACT1CAP57 PO (14:13)
[2021-05-05] MEDS ORDERED: HYDR-4209 PO (14:13)
[2021-05-05 15:00] LABS: IRON, SERUM 27 ug/dL (50-175)
[2021-05-05 15:56] VITALS: BP 116/71
--- NOTE | 2021-05-05 18:00 | NUR ---
dr. ley int he patient's room notified of discharge and follow up orders.
--- NOTE | 2021-05-05 18:43 | NUR ---
pt discharged to home. discharge instructions, f/up appts and medications relayed to the patient. he verbalized understanding. pt verbalized he will call [employer]. removed iv on left hand minimal bleeding noted. seen and examined by dr ley prior to discharged. per dr. ley ok to give augmentin atb early. pt left in stable condition.
[2021-05-05] MEDS ORDERED: AMOXICILLIN-CLAVUL 500-125MG TABLET PO SCH (21:00)
[2021-05-07 17:18] LABS: *GC NAA Negative; *TRIC.VAG. NAA Negative
== END 2021-05-05 18:45 | disposition home or self-care (01) | DRG 501 ==
LOC: ER 21:34 → MEDSURG3 04-28 03:56
PROVIDERS: ADMIT Student in an Organized Health Care Education/Training Program; ATTEND Internal Medicine
DX: N49.2 Inflammatory disorders of scrotum (principal); N17.0 Acute kidney failure with tubular necrosis; K50.90 Crohn's disease, unspecified, without complications; Z90.49 Acquired absence of other specified parts of digestive tract; Z88.1 Allergy status to other antibiotic agents; D72.829 Elevated white blood cell count, unspecified; E66.9 Obesity, unspecified; G89.29 Other chronic pain; K62.89 Other specified diseases of anus and rectum; D50.9 Iron deficiency anemia, unspecified; Z68.31 Body mass index [BMI] 31.0-31.9, adult; Z20.822 Contact with and (suspected) exposure to COVID-19; N43.3 Hydrocele, unspecified; L03.315 Cellulitis of perineum
CPT/HCPCS: 36415; 70030-TC; 76870; 83550; 83605; 83735; 84100; 85025; 86592; 86803; 87491; 87806; A4663; G0378; J1170; J1885; J2543; J3010; J3370; J7030; J7040; J7060

== ENCOUNTER 2021-07-28 23:01 | Inpatient (IN) | payer OTHER ==
[~2021-07-28] VITALS: Ht 188 cm; Wt 117.9 kg
[~2021-07-28 23:01] MED LIST changes: +AMOX1TAB15 PO; -CEPH500C2 PO; -CIPR500T5 PO; -HYDR-3980 PO; +HYDR-4209 PO; +LACT1CAP57 PO; -METR500T PO; -MULT-853
[2021-07-29] MEDS ORDERED: IV NORMAL SALINE 1000 ML BAG IV ONE (03:00)
[2021-07-29] MEDS ORDERED: HYDROMORPHONE 1 MG/1 ML DISP.SYRIN IV ONE (03:00)
[2021-07-29 03:13] LABS: HEMATOCRIT 40.1 % (36.7-47.1); MEAN CORPUSCULAR HEMOGLOBIN 26.6 uug (23.8-33.4); MEAN CORPUSCULAR VOLUME 79.2 fL (73.0-96.2); PLATELET COUNT (AUTO) 409 K/uL (152-348)
[2021-07-29] MEDS ORDERED: PIPERACILLIN SODIUM/TAZOBACTAM 4.5 G in IV DEXTROSE 5% 50 ML IV SCH ×2 (03:15→06:00)
[2021-07-29] MEDS ORDERED: PIPERACILLIN/TAZO 4.5 GM VIAL IV ONE (03:16)
[2021-07-29] MEDS ORDERED: HYDROMORPHONE 2 MG/1 ML DISP.SYRIN ONE ×2 (03:16→06:08)
[2021-07-29 03:24] LABS: BILIRUBIN,DIRECT 0.2 mg/dL (0.0-0.2); BILIRUBIN,TOTAL 0.5 mg/dL (0.2-1.0); CREATININE 1.3 mg/dL (0.6-1.3); POTASSIUM 4.1 mmol/L (3.5-5.1); TOTAL PROTEIN, SERUM 8.7 g/dL (6.4-8.2)
[2021-07-29] MEDS ORDERED: HYDROMORPHONE 1 MG/1 ML DISP.SYRIN IV PRN (04:45)
[2021-07-29] MEDS ORDERED: ONDANSETRON 4 MG/2 ML VIAL IV PRN (04:45)
[2021-07-29] MEDS ORDERED: ENOXAPARIN SODIUM 40 MG/0.4 ML DISP.SYRIN SQ SCH (04:45)
[2021-07-29] MEDS ORDERED: IV NS 1000 ML 1,000 ML IV PRN (04:45)
[2021-07-29] MEDS ORDERED: Z GUARD REMEDY PASTE 57 GM TUBE TOP PRN (04:45)
[2021-07-29] MEDS ORDERED: ACETAMINOPHEN 325 MG TABLET PO PRN (04:45)
[2021-07-29] MEDS ORDERED: MAGNESIUM HYDROXIDE 30 ML LIQUID UDC PO PRN (04:45)
[2021-07-29] MEDS ORDERED: ENOXAPARIN SODIUM 40 MG/0.4 ML DISP.SYRIN SQ ONE (05:50)
[2021-07-29] MEDS ORDERED: PANTOPRAZOLE SODIUM 40 MG TABLET.DR PO SCH (07:00)
[2021-07-29] MEDS ORDERED: PANTOPRAZOLE SODIUM 40 MG TABLET.DR PO ONE (08:37)
[2021-07-29] MEDS ORDERED: ONDANSETRON 4 MG/2 ML VIAL ONE (09:58)
[2021-07-29] MEDS ORDERED: HYDROMORPHONE 1 MG/1 ML DISP.SYRIN ONE (09:58)
[2021-07-29] MEDS: HYDROMORPHONE 1 MG/1 ML DISP.SYRIN IV PRN ×2 (10:02→14:19)
[2021-07-29] MEDS ORDERED: PIPERACILLIN SODIUM/TAZOBACTAM 3.375 G in IV DEXTROSE 5% 100 ML IV SCH (11:00)
[2021-07-29] MEDS ORDERED: PIPERACILLIN/TAZOBACTAM/D5W 50 ML IV ONE (11:16)
[2021-07-29 11:28] LABS: *BILIRUBIN,URIN NEGATIVE (NEGATIVE); *CLARITY,URINE TURBID (CLEAR); *COLOR,URINE YELLOW (YELLOW); *KETONES,URINE NEGATIVE (NEGATIVE); *UROBILINOGEN,URINE 0.2 E.U./dl (NORMAL); LEUKOCYTE ESTERASE ,URINE NEGATIVE (NEGATIVE); NITRITE, URINE NEGATIVE (NEGATIVE); PH,URINE 5.5 (5.0-8.0); UGLUCOSE NEGATIVE (NEGATIVE)
[2021-07-29 11:30] LABS: *BLOOD, URINE TRACE (NEGATIVE)
[2021-07-29 16:16] LABS: BACTERIA,URINE 2 /HPF (NONE SEEN)
[2021-07-29 16:17] LABS: SQUAMOUS EPITHELIAL CELL,UR FEW /HPF (NONE SEEN); URIC ACID CRYSTALS,URINE FEW /HPF (NONE SEEN); URINE AMORPHOUS URATE MANY /HPF
[2021-07-29] MEDS ORDERED: DOXY-326 PO (16:43)
[2021-07-29] MEDS ORDERED: HYDR-3980 PO (16:43)
[2021-07-29 17:28] VITALS: BP 108/61
[2021-07-29] MEDS ORDERED: DOCUSATE SODIUM 100 MG CAPSULE PO SCH (21:00)
[2021-07-30] MEDS ORDERED: ENOXAPARIN SODIUM 40 MG/0.4 ML DISP.SYRIN SQ SCH (09:00)
== END 2021-07-29 17:27 | disposition home or self-care (01) | DRG 501 ==
LOC: ER 23:02 → TRANSITION 07-29 08:15
PROVIDERS: ADMIT Nurse Practitioner Acute Care; ATTEND Nurse Practitioner Acute Care
DX: N45.1 Epididymitis (principal); G89.29 Other chronic pain; K51.90 Ulcerative colitis, unspecified, without complications; K62.89 Other specified diseases of anus and rectum; Z86.72 Personal history of thrombophlebitis; Z90.49 Acquired absence of other specified parts of digestive tract; Z20.822 Contact with and (suspected) exposure to COVID-19; Z88.1 Allergy status to other antibiotic agents; Z88.5 Allergy status to narcotic agent
CPT/HCPCS: 36415; 70030-TC; 83605; 85025; 85730; 87040; 87086; 93005; A4663; G0378; J1170; J1650; J2405; J2543; J7030; J7060

== ENCOUNTER 2021-09-09 01:28 | Inpatient (IN) | payer OTHER ==
[~2021-09-09] VITALS: Ht 188 cm; Wt 113.4 kg
[~2021-09-09 01:28] MED LIST changes: -AMOX1TAB15 PO; +DOXY-326 PO; +HYDR-3980 PO; -HYDR-4209 PO
[2021-09-09] MEDS ORDERED: IV NORMAL SALINE 1000 ML BAG IV ONE (03:45)
[2021-09-09 03:59] LABS: HEMATOCRIT 40.9 % (36.7-47.1); MEAN CORPUSCULAR HEMOGLOBIN 26.4 uug (23.8-33.4); PLATELET COUNT (AUTO) 393 K/uL (152-348)
[2021-09-09 04:05] LABS: CREATININE 1.1 mg/dL (0.6-1.3)
[2021-09-09 04:10] LABS: BILIRUBIN,DIRECT 0.1 mg/dL (0.0-0.2); BILIRUBIN,TOTAL 0.5 mg/dL (0.2-1.0); TOTAL PROTEIN, SERUM 9.1 g/dL (6.4-8.2)
[2021-09-09] MEDS ORDERED: HYDROMORPHONE 1 MG/1 ML DISP.SYRIN IV ONE (05:15)
[2021-09-09] MEDS ORDERED: IV NS 1000 ML 1,000 ML IV ONE (05:15)
[2021-09-09] MEDS ORDERED: PIPERACILLIN SODIUM/TAZOBACTAM 3.375 G in IV DEXTROSE 5% 50 ML IV ONE (05:15)
--- NOTE | 2021-09-09 05:28 | NUR ---
Paged Epic panel holistic health practitioner. Waiting for Virgilio Ricci NP to call back.
--- NOTE | 2021-09-09 05:35 | NUR ---
ACCEPTED BY GREG DOMINGUEZ NP WHO ACCEPT PATIENT TO MED SURG.
[2021-09-09] MEDS ORDERED: PIPERACILLIN/TAZOBACTAM/D5W 50 ML IV ONE (05:38)
[2021-09-09] MEDS ORDERED: HYDROMORPHONE 1 MG/1 ML DISP.SYRIN ONE (05:39)
[2021-09-09] MEDS ORDERED: MAGNESIUM HYDROXIDE 30 ML LIQUID UDC PO PRN (05:45)
[2021-09-09] MEDS ORDERED: REMEDY ESSENTIAL ZINC PASTE 113 GM TP PRN (05:45)
[2021-09-09] MEDS ORDERED: MORPHINE SULFATE 2 MG/1 ML DISP.SYRIN IV PRN (05:45)
[2021-09-09] MEDS ORDERED: TEMAZEPAM 15 MG CAPSULE PO PRN (05:45)
[2021-09-09] MEDS ORDERED: HYDROCODONE/APAP 5-325MG TABLET PO PRN (05:45)
[2021-09-09] MEDS ORDERED: ONDANSETRON 4 MG/2 ML VIAL IV PRN (05:45)
[2021-09-09] MEDS ORDERED: PIPERACILLIN SODIUM/TAZOBACTAM 3.375 G in IV DEXTROSE 5% 50 ML IV SCH (06:00)
--- NOTE | 2021-09-09 06:01 | NUR ---
Call for bed was made. Patient will be assigned at Room 329.
--- NOTE | 2021-09-09 06:59 | NUR ---
Patient's belongings list done and placed at chart.
--- NOTE | 2021-09-09 07:08 | NUR ---
Left patient VSMCKENNA Hilliard. Endorsed to next shift RN for continuity of care.
[2021-09-09] MEDS: PANTOPRAZOLE SODIUM 40 MG TABLET.DR PO SCH (07:44)
[2021-09-09] MEDS ORDERED: PANTOPRAZOLE SODIUM 40 MG TABLET.DR PO ONE (07:55)
[2021-09-09] MEDS ORDERED: MORPHINE SULFATE 4 MG/1 ML DISP.SYRIN IV PRN (09:45)
--- NOTE | 2021-09-09 09:49 | NUR ---
REPORT WAS GIVEN TO RN M/S. PT WAS TRANSFERED TO ROOM #329A.
--- NOTE | 2021-09-09 10:10 | NUR ---
The patient arrived in the unit at 0940H via hospital bed, report given by John of ED. Left AC G20 iv site intact and patent. started IV Sodium Chloride 0.9% 1L at 75 cc/hr as ordered, infusing well. Patient reported pain, informed MD patient does not use Morphine, MD stated he will review meds. Oriented the patient to the room. Kept call light within reach. Endorsed to SABRINA Pittman to continue with care and admission.
[2021-09-09] MEDS: IV NS 1000 ML 1,000 ML IV PRN (10:14)
--- NOTE | 2021-09-09 11:00 | NUR ---
SEEN BY DR ROMANO FOR FOLLOW-UP SEE NOTES, AWAITING SURGICAL CONSULT WITH DR CRAIG, SEEN BY WOUND NURSE FOR CONSULT. CONTINUE TELE STATUS SR ON MONITOR. RESTING COMFORTABLY IN BED Addendum: 09/09/21 at 1840 by ZAC KENNEDY RN ERROR
--- NOTE | 2021-09-09 11:00 | NUR ---
SEEN BY DR ROMANO FOR FOLLOW-UP REVIWED PAIN MEDICINE, WILL START ON DILAUDID. SEE NOTES
[2021-09-09 11:57] VITALS: BP 142/89
[2021-09-09] MEDS: HYDROMORPHONE 1 MG/1 ML DISP.SYRIN IV PRN ×2 (12:02→18:01)
--- NOTE | 2021-09-09 12:16 | NUR ---
WOUND CARE CONSULT: PT PRESENTS WITH SWELLING TO PUBIC REGION AND SCROTUM, PRESENT ON ADMISSION. DEFER TO PMD FOR POSSIBLE UROLOGY CONSULT. MD IN AGREEMENT WITH PLAN OF CARE.
[2021-09-09] MEDS: PIPERACILLIN SODIUM/TAZOBACTAM 3.375 G in IV DEXTROSE 5% 100 ML IV SCH ×2 (14:06→21:08)
[2021-09-09 16:00] VITALS: BP 116/72
--- NOTE | 2021-09-09 19:01 | NUR ---
CONTINUE WITH PAIN MANAGEMENT AND IV ANTIBIOTIC. STOOL FOR C-DIFF SENT FOR LOOSE STOOL X3.
--- NOTE | 2021-09-09 19:55 | NUR ---
Received patient in bed. AAOX4. Patient reports pain at scrotal area, advised patient his PRN pain medication isn't due yet, placed ice pack instead. IV access patent and intact, running 0.9% NS 75cc/hr. Assessed scrotal area, swelling and tenderness noted. Patient is ambulatory. Call light button and frequently used items within reach. Will continue to monitor.
[2021-09-09] MEDS: ACETAMINOPHEN 325 MG TABLET PO PRN (22:25)
[2021-09-10] MEDS: HYDROMORPHONE 1 MG/1 ML DISP.SYRIN IV PRN ×4 (00:20→19:36)
[2021-09-10] MEDS: IV NS 1000 ML 1,000 ML IV PRN (00:20)
--- NOTE | 2021-09-10 00:20 | NUR ---
Patient complained of having severe scrotal pain, PRN Dilaudid 0.5mg IV given as ordered. Patient is sleeping/aroused easily. Will continue to monitor.
[2021-09-10] MEDS: PIPERACILLIN SODIUM/TAZOBACTAM 3.375 G in IV DEXTROSE 5% 100 ML IV SCH ×3 (05:27→21:18)
[2021-09-10] MEDS: PANTOPRAZOLE SODIUM 40 MG TABLET.DR PO SCH (06:30)
[2021-09-10 06:42] LABS: HEMATOCRIT 35.4 % (36.7-47.1); MEAN CORPUSCULAR HEMOGLOBIN 26.5 uug (23.8-33.4); MEAN CORPUSCULAR VOLUME 78.7 fL (73.0-96.2); PLATELET COUNT (AUTO) 336 K/uL (152-348)
[2021-09-10 06:47] LABS: CREATININE 1.1 mg/dL (0.6-1.3); MAGNESIUM 2.2 mg/dL (1.8-2.4); PHOSPHOROUS 3.7 mg/dL (2.5-4.9); POTASSIUM 4.2 mmol/L (3.5-5.1)
--- NOTE | 2021-09-10 06:55 | NUR ---
Patient slept poorly last night due to pain. PRN pain medication was given to alleviate pain. IV access patent and intact, running 0.9% NS running at 75 cc/hr. Scrotal swelling noted, photo taken and attached to chart. All needs attended to and met. Safety precautions maintained. Call light within reach. Will endorse to day shift.
--- NOTE | 2021-09-10 08:00 | NUR ---
RESTING COMFORTABLY IN BED NO SS OF PAIN OR DISTRESS, IVF AT 75 MLS/HR. NO REACTION FROM ZOSYN. AFEBRILE
--- NOTE | 2021-09-10 12:00 | NUR ---
SEEN BY DR ROMANO FOR FOLLOW-UP, CONTINUE ZOSYN, SEE NOTES
[2021-09-10 12:13] VITALS: BP 121/64
--- NOTE | 2021-09-10 15:55 | NUR ---
CONTINUE WITH PAIN MANAGEMENT, IV ANTIBIOTIC. AFEBRILE
[2021-09-10 17:19] VITALS: BP 116/63
--- NOTE | 2021-09-10 19:40 | NUR ---
Patient resting in bed. AO x 4. On room air saturating at 100%. Pt c/o pain in scrotum area, states "hurts more when I get up to use the bathroom". Dilaudid 0.5 mg given for 10/10 pain. No signs of acute distress noted. IV in RAC running NS at 75 mls. Call lights within reach. Belongings by bedside. Safety measures implemented.
[2021-09-10 20:00] VITALS: BP 117/70
[2021-09-11] MEDS: ACETAMINOPHEN 325 MG TABLET PO PRN (00:30)
[2021-09-11] MEDS: HYDROMORPHONE 1 MG/1 ML DISP.SYRIN IV PRN ×4 (01:38→19:49)
[2021-09-11] MEDS: IV NS 1000 ML 1,000 ML IV PRN (03:54)
[2021-09-11 04:00] VITALS: BP 108/56
[2021-09-11] MEDS: PIPERACILLIN SODIUM/TAZOBACTAM 3.375 G in IV DEXTROSE 5% 100 ML IV SCH ×3 (05:18→21:12)
[2021-09-11] MEDS: PANTOPRAZOLE SODIUM 40 MG TABLET.DR PO SCH (06:03)
[2021-09-11 06:25] LABS: MEAN CORPUSCULAR HEMOGLOBIN 26.1 uug (23.8-33.4); MEAN CORPUSCULAR VOLUME 79.1 fL (73.0-96.2); PLATELET COUNT (AUTO) 346 K/uL (152-348)
[2021-09-11 06:35] LABS: CREATININE 1.1 mg/dL (0.6-1.3); POTASSIUM 4.5 mmol/L (3.5-5.1)
[2021-09-11 11:12] VITALS: BP 117/67
[2021-09-11 13:25] LABS: *BILIRUBIN,URIN NEGATIVE (NEGATIVE); *CLARITY,URINE CLEAR (CLEAR); *COLOR,URINE YELLOW (YELLOW); *KETONES,URINE NEGATIVE (NEGATIVE); *UROBILINOGEN,URINE 0.2 E.U./dl (NORMAL); LEUKOCYTE ESTERASE ,URINE NEGATIVE (NEGATIVE); NITRITE, URINE NEGATIVE (NEGATIVE); PH,URINE 5.5 (5.0-8.0); UGLUCOSE NEGATIVE (NEGATIVE)
[2021-09-11 13:27] LABS: *BLOOD, URINE TRACE (NEGATIVE)
[2021-09-11 13:45] LABS: BACTERIA,URINE NONE SEEN /HPF (NONE SEEN); RBC,URINE 0-3 /HPF (0-3); SQUAMOUS EPITHELIAL CELL,UR FEW /HPF (NONE SEEN); WBC,URINE NONE SEEN /HPF (0-3)
[2021-09-11 15:13] VITALS: BP 127/53
--- NOTE | 2021-09-11 16:33 | NUR ---
no events noted during shift
[2021-09-11 20:00] VITALS: BP 108/66
[2021-09-12] MEDS: HYDROMORPHONE 1 MG/1 ML DISP.SYRIN IV PRN ×4 (01:52→21:16)
[2021-09-12 04:00] VITALS: BP 114/78
[2021-09-12] MEDS: IV NS 1000 ML 1,000 ML IV PRN (05:25)
[2021-09-12] MEDS: PIPERACILLIN SODIUM/TAZOBACTAM 3.375 G in IV DEXTROSE 5% 100 ML IV SCH ×3 (05:27→21:18)
[2021-09-12 06:35] LABS: HEMATOCRIT 35.4 % (36.7-47.1); MEAN CORPUSCULAR HEMOGLOBIN 26.2 uug (23.8-33.4); MEAN CORPUSCULAR VOLUME 78.6 fL (73.0-96.2); PLATELET COUNT (AUTO) 418 K/uL (152-348)
[2021-09-12] MEDS: PANTOPRAZOLE SODIUM 40 MG TABLET.DR PO SCH (06:35)
[2021-09-12 06:45] LABS: CREATININE 1.1 mg/dL (0.6-1.3); POTASSIUM 4.2 mmol/L (3.5-5.1)
[2021-09-12 11:07] VITALS: BP 106/54
[2021-09-12 15:36] VITALS: BP 114/61
[2021-09-12 20:00] VITALS: BP 133/62
[2021-09-13] MEDS: HYDROMORPHONE 1 MG/1 ML DISP.SYRIN IV PRN ×3 (03:35→15:05)
[2021-09-13] MEDS: IV NS 1000 ML 1,000 ML IV PRN (03:39)
[2021-09-13 04:18] VITALS: BP 116/71
[2021-09-13] MEDS: PIPERACILLIN SODIUM/TAZOBACTAM 3.375 G in IV DEXTROSE 5% 100 ML IV SCH ×2 (05:21→13:03)
[2021-09-13] MEDS: PANTOPRAZOLE SODIUM 40 MG TABLET.DR PO SCH (06:14)
[2021-09-13 06:50] LABS: HEMATOCRIT 35.4 % (36.7-47.1); MEAN CORPUSCULAR VOLUME 79.2 fL (73.0-96.2); PLATELET COUNT (AUTO) 423 K/uL (152-348)
[2021-09-13 07:07] LABS: CREATININE 1.1 mg/dL (0.6-1.3); POTASSIUM 4.3 mmol/L (3.5-5.1)
[2021-09-13] MEDS ORDERED: CLIN300C12 PO (07:19)
[2021-09-13 11:52] VITALS: BP 116/66
--- NOTE | 2021-09-13 16:05 | NUR ---
dc orders received noted and carried out.dc heplock per md orders.dc instruction and education given to the pt .pt said he will follow up with his pcp .pt left the facility via private car in stable condition
== END 2021-09-13 16:00 | disposition home or self-care (01) | DRG 501 ==
LOC: ER 01:31 → MEDSURG3 09:25
PROVIDERS: ADMIT Family Medicine; ATTEND Family Medicine
DX: N49.2 Inflammatory disorders of scrotum (principal); D72.829 Elevated white blood cell count, unspecified; D75.839 Thrombocytosis, unspecified; N43.3 Hydrocele, unspecified; E66.9 Obesity, unspecified; Z68.32 Body mass index [BMI] 32.0-32.9, adult; K51.90 Ulcerative colitis, unspecified, without complications; Z90.49 Acquired absence of other specified parts of digestive tract; Z20.822 Contact with and (suspected) exposure to COVID-19
CPT/HCPCS: 36415; 76870; 83605; 83735; 84100; 85025; 87086; A4663; G0378; J1170; J2543; J7030; J7060

== ENCOUNTER 2022-04-10 00:57 | Emergency (ER) | payer SELFPAY ==
[~2022-04-10 00:57] MED LIST changes: +CLIN300C12 PO; -DOXY-326 PO
--- NOTE | 2022-04-10 01:50 | NUR ---
PATIENT WAS CALLED TO BE TRIAGED BUT WAS NOT PRESENT IN THE WAITING OR OUTSIDE OF ER.
--- NOTE | 2022-04-10 02:15 | NUR ---
PATIENT WAS CALLED TO BE TRIAGED BUT WAS NOT PRESENT IN THE WAITING ROOM OR OUTSIDE OF ER. PATIENT WAS NOT TRIAGED OR SEEN BY ERMD.
[2022-04-11] MEDS ORDERED: ONDA4TAB5 PO (06:02)
[2022-04-11] MEDS ORDERED: HYDR-3974 PO (06:02)
== END 2022-04-10 02:15 | disposition left against medical advice (07) ==
LOC: ER 01:02
DX: Z53.21 Procedure and treatment not carried out due to patient leaving prior to being seen by health care provider (principal)

== ENCOUNTER 2022-04-11 02:35 | Emergency (ER) | payer OTHER ==
[~2022-04-11] VITALS: Ht 188 cm; Wt 111.1 kg
--- NOTE | 2022-04-11 03:11 | NUR ---
pt c/o of rectal pain.
--- NOTE | 2022-04-11 03:12 | NUR ---
Dr. Navarro at bedside for MSE.
--- NOTE | 2022-04-11 03:28 | NUR ---
I assisted Dr. Navarro as a interpreter deaf for rectal exam.
[2022-04-11] MEDS ORDERED: IV NORMAL SALINE 1000 ML BAG IV ONE (03:30)
[2022-04-11] MEDS ORDERED: ONDANSETRON 4 MG/2 ML VIAL IV ONE (03:30)
[2022-04-11] MEDS ORDERED: HYDROMORPHONE 1 MG/1 ML DISP.SYRIN IV ONE ×3 (03:30→06:15)
[2022-04-11] MEDS ORDERED: HYDROMORPHONE 1 MG/1 ML DISP.SYRIN ONE ×3 (03:36→06:09)
[2022-04-11] MEDS ORDERED: ONDANSETRON 4 MG/2 ML VIAL ONE (03:36)
[2022-04-11 04:01] LABS: *BILIRUBIN,URIN 1+ (NEGATIVE); *BLOOD, URINE 1+ (NEGATIVE); *COLOR,URINE YELLOW (YELLOW); *KETONES,URINE 2+ (NEGATIVE); *UROBILINOGEN,URINE 0.2 E.U./dl (NORMAL); LEUKOCYTE ESTERASE ,URINE TRACE (NEGATIVE); NITRITE, URINE NEGATIVE (NEGATIVE); PH,URINE 5.5 (5.0-8.0); UGLUCOSE NEGATIVE (NEGATIVE)
[2022-04-11 04:05] LABS: CREATININE 1.4 mg/dL (0.6-1.3); POTASSIUM 3.9 mmol/L (3.5-5.1)
[2022-04-11 04:11] LABS: BILIRUBIN,DIRECT 0.1 mg/dL (0.0-0.2); BILIRUBIN,TOTAL 0.9 mg/dL (0.2-1.0); TOTAL PROTEIN, SERUM 9.9 g/dL (6.4-8.2)
[2022-04-11 04:12] LABS: *CLARITY,URINE CLOUDY (CLEAR)
[2022-04-11 04:25] LABS: HEMATOCRIT 46.7 % (36.7-47.1); MEAN CORPUSCULAR HEMOGLOBIN 26.5 uug (23.8-33.4); MEAN CORPUSCULAR VOLUME 80.2 fL (73.0-96.2); PLATELET COUNT (AUTO) 562 K/uL (152-348)
[2022-04-11] MEDS ORDERED: ONDA4TAB5 PO (06:02)
[2022-04-11] MEDS ORDERED: HYDR-3974 PO (06:02)
[2022-04-11 07:12] VITALS: BP 130/70
[2022-04-11 07:25] LABS: BACTERIA,URINE FEW /HPF (NONE SEEN); SQUAMOUS EPITHELIAL CELL,UR FEW /HPF (NONE SEEN); URINE AMORPHOUS URATE RARE /HPF
== END 2022-04-11 07:16 | disposition home or self-care (01) ==
LOC: ER 02:35
DX: K62.89 Other specified diseases of anus and rectum (principal); R00.0 Tachycardia, unspecified; K51.90 Ulcerative colitis, unspecified, without complications; G89.29 Other chronic pain; Z90.49 Acquired absence of other specified parts of digestive tract; D72.829 Elevated white blood cell count, unspecified
CPT/HCPCS: 80076; 80048; 86625; 81001; 82009; 83690; 85025; 87493; 87046; 36415; 99284; 96361; 96374; 96375; 96376; 87015; 87899; 87427; J2405; J1170 ×3; J7040; A4663

== ENCOUNTER 2022-04-26 21:20 | Emergency (ER) | payer OTHER ==
[~2022-04-26] VITALS: Ht 188 cm; Wt 117.9 kg
[~2022-04-26 21:20] MED LIST changes: +HYDR-3974 PO; +ONDA4TAB5 PO
--- NOTE | 2022-04-26 21:50 | NUR ---
Patient ambulatory with steady gait. NAD noted. A/O x4.
--- NOTE | 2022-04-26 22:15 | NUR ---
Dr. Fagan at bedside. MSE in progress.
[2022-04-26] MEDS ORDERED: HYDROMORPHONE 1 MG/1 ML DISP.SYRIN IV ONE (22:45)
[2022-04-26 23:00] LABS: CREATININE 1.1 mg/dL (0.6-1.3); POTASSIUM 4.3 mmol/L (3.5-5.1)
[2022-04-26 23:05] LABS: HEMATOCRIT 39.3 % (36.7-47.1); MEAN CORPUSCULAR HEMOGLOBIN 26.7 uug (23.8-33.4); PLATELET COUNT (AUTO) 436 K/uL (152-348)
[2022-04-26] MEDS ORDERED: HYDROMORPHONE 1 MG/1 ML DISP.SYRIN ONE (23:07)
[2022-04-26] MEDS ORDERED: CELLULOSE,OXIDIZED 2x3 MC ONE (23:46)
[2022-04-26] MEDS ORDERED: IOHEXOL 300MG/ML 100 ML INFUS..BTL ONE (23:46)
[2022-04-26] MEDS ORDERED: SWABABLE VALVE TRANSFER SET EA MC ONE (23:47)
[2022-04-26] MEDS ORDERED: IV NORMAL SALINE 250 ML IV ONE (23:47)
--- NOTE | 2022-04-26 23:56 | NUR ---
Taken down for CT.
--- NOTE | 2022-04-27 00:09 | NUR ---
Pt back from CT.
--- NOTE | 2022-04-27 00:19 | NUR ---
Patient had a BM and stated that the pain from abscess came rushing back. Dr. Fagan informed.
[2022-04-27] MEDS ORDERED: HYDROMORPHONE 1 MG/1 ML DISP.SYRIN ONE ×2 (00:25→02:05)
[2022-04-27] MEDS ORDERED: HYDROMORPHONE 1 MG/1 ML DISP.SYRIN IV ONE ×2 (00:45→02:00)
[2022-04-27] MEDS ORDERED: LIDOCAINE HCL 2% 20 ML VIAL ONE (01:47)
[2022-04-27] MEDS ORDERED: AMOX-430 PO (02:07)
[2022-04-27] MEDS ORDERED: HYDR-3974 PO (02:07)
[2022-04-27] MEDS ORDERED: CEFAZOLIN 1 G VIAL ONE (02:13)
[2022-04-27] MEDS ORDERED: CEFAZOLIN 1 G in IV DEXTROSE 5% 50 ML IV ONE (02:15)
--- NOTE | 2022-04-27 03:30 | NUR ---
Patient discharged to home in stable condition. A/O x4. NAD noted. Ambulatory with steady gait. Written and verbal after care instructions given. Patient verbalizes understanding of instructions. Stressed follow up or return to ER for worsening s/s.
[2022-04-27 03:31] VITALS: BP 131/83
== END 2022-04-27 03:30 | disposition home or self-care (01) ==
LOC: ER 21:20
DX: K61.0 Anal abscess (principal); K51.90 Ulcerative colitis, unspecified, without complications; Z90.49 Acquired absence of other specified parts of digestive tract; Z88.1 Allergy status to other antibiotic agents; Z88.5 Allergy status to narcotic agent
CPT/HCPCS: 46050; 74177; 96375; 80048; 85025; 87040 ×2; 36415; 83605; 99285; 96365; 87070; 96376; Q9967; J1170 ×3; J0690; J3490; 87077

== ENCOUNTER 2022-08-26 15:35 | Emergency (ER) | payer OTHER ==
[~2022-08-26] VITALS: Ht 188 cm; Wt 117.9 kg
[~2022-08-26 15:35] MED LIST changes: +AMOX-430 PO
[2022-08-26] MEDS ORDERED: ACETAMINOPHEN 325 MG TABLET PO ONE (16:30)
[2022-08-26] MEDS ORDERED: ACETAMINOPHEN 325 MG TABLET ONE (16:32)
[2022-08-26 16:33] LABS: HEMATOCRIT 40.5 % (36.7-47.1); MEAN CORPUSCULAR HEMOGLOBIN 26.2 uug (23.8-33.4); MEAN CORPUSCULAR VOLUME 80.3 fL (73.0-96.2); PLATELET COUNT (AUTO) 421 K/uL (152-348)
[2022-08-26 17:04] LABS: ALANINE AMINOTRANSFERASE 21 U/L (16-63); ALKALINE PHOSPHATASE 111 U/L (50-136); ASPARTATE AMINOTRANSFERASE 14 U/L (15-37); BILIRUBIN,DIRECT 0.1 mg/dL (0.0-0.2); BILIRUBIN,TOTAL 0.4 mg/dL (0.2-1.0); CARBON DIOXIDE 29 mmol/L (21-32); CHLORIDE 104 mmol/L (98-107); CREATININE 1.1 mg/dL (0.6-1.3); GLUCOSE 97 mg/dL (74-106); POTASSIUM 4.2 mmol/L (3.5-5.1); TOTAL PROTEIN, SERUM 8.2 g/dL (6.4-8.2); UREA NITROGEN, BLOOD 11 mg/dL (7-18)
[2022-08-26 18:47] VITALS: BP 138/82
== END 2022-08-26 18:56 | disposition home or self-care (01) ==
LOC: ER 15:35
DX: R07.9 Chest pain, unspecified (principal); M25.512 Pain in left shoulder; Z90.49 Acquired absence of other specified parts of digestive tract; G89.29 Other chronic pain; K51.90 Ulcerative colitis, unspecified, without complications; Z84.89 Family history of other specified conditions; Z88.1 Allergy status to other antibiotic agents; Z88.5 Allergy status to narcotic agent
CPT/HCPCS: 36415; 71045; 84484; 85025; 85730; 93005; A4663

== ENCOUNTER 2024-04-06 00:25 | Emergency (ER) | payer OTHER ==
[~2024-04-06] VITALS: Ht 188 cm; Wt 115.7 kg
[~2024-04-06 00:25] MED LIST changes: -CLIN300C12 PO; -HYDR-3974 PO; -HYDR-3980 PO; -LACT1CAP57 PO; +MESA10007 RC; -ONDA4TAB5 PO
[2024-04-06] MEDS ORDERED: OXYCODONE/APAP 5-325 MG TABLET ONE (01:35)
[2024-04-06] MEDS: OXYCODONE/APAP 5-325 MG TABLET PO ONE (01:36)
[2024-04-06] MEDS: IV NORMAL SALINE 1000 ML BAG IV ONE (01:36)
[2024-04-06 01:44] LABS: BASOPHILS # (AUTO) 0.1 K/UL (0.0-0.2); BASOPHILS % (AUTO) 0.5 % (0.0-2.0); EOSINOPHILS % (AUTO) 0.1 % (0.0-7.0); HEMATOCRIT 40.6 % (36.7-47.1); HEMOGLOBIN 13.6 g/dL (12.5-16.3); LYMPHOCYTES # (AUTO) 1.6 K/uL (0.8-4.8); MEAN CORPUSCULAR HEMOGLOBIN 28.7 uug (23.8-33.4); MEAN CORPUSCULAR HGB CONC 34 g/dL (32.5-36.3); MEAN CORPUSCULAR VOLUME 85.8 fL (73.0-96.2); MONOCYTES # (AUTO) 1.1 K/uL (0.1-1.30); MONOCYTES % (AUTO) 10.7 % (0.0-11.0); NEUTROPHILS # (AUTO) 7.9 K/uL (1.8-8.9); NEUTROPHILS % (AUTO) 73.7 % (38.5-71.5); PLATELET COUNT (AUTO) 269 K/uL (152-348); RED BLOOD CELL COUNT(AUTO) 4.73 MIL/uL (4.06-5.63); RED CELL DISTRIBUTION WIDTH 14.9 % (12.1-16.2); WHITE BLOOD COUNT (AUTO) 10.7 K/uL (3.6-10.2)
[2024-04-06 01:45] LABS: CALCIUM 8.6 mg/dL (8.5-10.1); CREATININE 1.2 mg/dL (0.6-1.3)
[2024-04-06 01:46] LABS: DIFFERENTIAL COMMENT 1
[2024-04-06 01:57] LABS: ALBUMIN 3.5 g/dL (3.4-5.0); BILIRUBIN,DIRECT 0.1 mg/dL (0.0-0.2); BILIRUBIN,TOTAL 0.7 mg/dL (0.2-1.0); TOTAL PROTEIN, SERUM 7.7 g/dL (6.4-8.2)
[2024-04-06] MEDS ORDERED: METR500T PO (02:03)
[2024-04-06] MEDS ORDERED: METRONIDAZOLE 500 MG/NS 100ML 100 ML IV ONE (02:04)
[2024-04-06] MEDS ORDERED: OXYC-133 PO (02:06)
[2024-04-06] MEDS: METRONIDAZOLE 500 MG/NS 100 ML PIGGYBACK IV ONE (02:27)
[2024-04-06 03:51] VITALS: BP 128/96; TEMP 98.2; O2SAT 98
== END 2024-04-06 03:52 | disposition home or self-care (01) ==
LOC: ER 00:29
DX: K60.4 Rectal fistula (principal); Z98.890 Other specified postprocedural states; Z79.891 Long term (current) use of opiate analgesic; Z79.899 Other long term (current) drug therapy; Z88.5 Allergy status to narcotic agent; Z88.1 Allergy status to other antibiotic agents
CPT/HCPCS: 99285; 96365; 71045; 96361; 80076; 80048; 83880; 85025; 84145; 87040 ×2; 36415; 93005; 83605; J3490; J7040; A4606; A4663

== ENCOUNTER 2024-04-15 14:03 | Emergency (ER) | payer OTHER ==
[~2024-04-15] VITALS: Ht 188 cm; Wt 115.7 kg
[~2024-04-15 14:03] MED LIST changes: +METR500T PO; +OXYC-133 PO
[2024-04-15 14:17] VITALS: O2SAT 97
[2024-04-15] MEDS ORDERED: OXYC-128 PO ×2 (16:14→16:46)
[2024-04-15] MEDS ORDERED: OXYCODONE/APAP 5-325 MG TABLET ONE (16:26)
[2024-04-15] MEDS: OXYCODONE/APAP 5-325 MG TABLET PO ONE (16:29)
== END 2024-04-15 17:05 | disposition home or self-care (01) ==
LOC: ER 14:04
DX: M79.671 Pain in right foot (principal); G89.29 Other chronic pain; Z90.49 Acquired absence of other specified parts of digestive tract; Z88.1 Allergy status to other antibiotic agents; Z88.5 Allergy status to narcotic agent; Z88.7 Allergy status to serum and vaccine
CPT/HCPCS: 73600; 73620; A4606; A4663

== ENCOUNTER 2024-06-04 17:10 | Emergency (ER) | payer OTHER ==
[~2024-06-04] VITALS: Ht 188 cm; Wt 115.7 kg
[~2024-06-04 17:10] MED LIST changes: +OXYC-128 PO
[2024-06-04 17:19] VITALS: O2SAT 98
[2024-06-04] MEDS ORDERED: OXYM15MI4 NS (18:04)
[2024-06-04] MEDS ORDERED: AMOX-430 PO (18:04)
[2024-06-04] MEDS ORDERED: FLUT16SP16 BNOSTRILS (18:04)
[2024-06-04] MEDS ORDERED: PSEU-249 PO (18:04)
[2024-06-04] MEDS ORDERED: HYDR-3980 PO (18:04)
== END 2024-06-04 18:14 | disposition home or self-care (01) ==
LOC: ER 17:10
DX: S90.31XA Contusion of right foot, initial encounter (principal); J32.9 Chronic sinusitis, unspecified; Z90.49 Acquired absence of other specified parts of digestive tract; Z79.899 Other long term (current) drug therapy; Z88.1 Allergy status to other antibiotic agents; Z88.5 Allergy status to narcotic agent; Z88.7 Allergy status to serum and vaccine; X58.XXXA Exposure to other specified factors, initial encounter; Y93.89 Activity, other specified; Y92.89 Other specified places as the place of occurrence of the external cause; Y99.8 Other external cause status
CPT/HCPCS: 73620; A4606; A4663

== ENCOUNTER 2024-06-15 20:58 | Emergency (ER) | payer OTHER ==
[~2024-06-15] VITALS: Ht 188 cm; Wt 115.7 kg
[~2024-06-15 20:58] MED LIST changes: +FLUT16SP16 BNOSTRILS; +HYDR-3980 PO; +OXYM15MI4 NS; +PSEU-249 PO
[2024-06-15] MEDS: ACETAMINOPHEN 500 MG TABLET PO ONE (22:33)
[2024-06-15] MEDS ORDERED: TRAM50TA2 PO ×2 (23:37→23:40)
[2024-06-15] MEDS: TRAMADOL HCL 50 MG TABLET PO ONE (23:46)
[2024-06-15] MEDS ORDERED: TRAMADOL HCL 50 MG TABLET ONE (23:46)
[2024-06-16 00:25] VITALS: BP 146/94; TEMP 98; O2SAT 99
== END 2024-06-15 23:55 | disposition home or self-care (01) ==
LOC: ER 21:00
DX: S93.491A Sprain of other ligament of right ankle, initial encounter (principal); S93.691A Other sprain of right foot, initial encounter; E66.9 Obesity, unspecified; G89.29 Other chronic pain; R03.0 Elevated blood-pressure reading, without diagnosis of hypertension; M20.41 Other hammer toe(s) (acquired), right foot; Z90.49 Acquired absence of other specified parts of digestive tract; Z88.1 Allergy status to other antibiotic agents; Z88.5 Allergy status to narcotic agent; Z88.7 Allergy status to serum and vaccine; X50.1XXA Overexertion from prolonged static or awkward postures, initial encounter; Y93.01 Activity, walking, marching and hiking; Y92.89 Other specified places as the place of occurrence of the external cause; Y99.8 Other external cause status; Z68.32 Body mass index [BMI] 32.0-32.9, adult
CPT/HCPCS: 73610; 73630; A4606; A4663

== ENCOUNTER 2025-01-13 21:55 | Emergency (ER) | payer OTHER ==
[~2025-01-13] VITALS: Ht 188 cm; Wt 127.0 kg
[~2025-01-13 21:55] MED LIST changes: +TRAM50TA2 PO
[2025-01-13] MEDS ORDERED: HYDROMORPHONE 1 MG/1 ML DISP.SYRIN ONE (22:35)
[2025-01-13] MEDS: HYDROMORPHONE 1 MG/1 ML DISP.SYRIN IV ONE (22:41)
[2025-01-13] MEDS: IV NORMAL SALINE 1000 ML BAG IV ONE (22:41)
[2025-01-13 22:49] LABS: PLATELET COUNT (AUTO) 360 K/uL (152-348); RED BLOOD CELL COUNT(AUTO) 5.21 MIL/uL (4.06-5.63); RED CELL DISTRIBUTION WIDTH 13.6 % (12.1-16.2); WHITE BLOOD COUNT (AUTO) 8.8 K/uL (3.6-10.2)
[2025-01-13 22:51] LABS: CREATININE 1.2 mg/dL (0.6-1.3); SODIUM SERUM 145 mmol/L (136-145); UREA NITROGEN, BLOOD 7 mg/dL (7-18)
[2025-01-13 22:56] LABS: ASPARTATE AMINOTRANSFERASE 31 U/L (15-37); TOTAL PROTEIN, SERUM 8.3 g/dL (6.4-8.2)
[2025-01-13] MEDS ORDERED: SWABABLE VALVE TRANSFER SET EA MC ONE (23:07)
[2025-01-13] MEDS ORDERED: IV NORMAL SALINE 250 ML IV ONE (23:07)
[2025-01-13] MEDS ORDERED: IOHEXOL 300MG/ML 100 ML INFUS..BTL ONE (23:07)
[2025-01-14 00:52] LABS: *BILIRUBIN,URIN NEGATIVE (NEGATIVE); *CLARITY,URINE CLEAR (CLEAR); *COLOR,URINE YELLOW (YELLOW); *KETONES,URINE NEGATIVE (NEGATIVE); *PROTEIN,URINE NEGATIVE (NEGATIVE); *UROBILINOGEN,URINE 0.2 E.U./dl (NORMAL); LEUKOCYTE ESTERASE ,URINE NEGATIVE (NEGATIVE); NITRITE, URINE NEGATIVE (NEGATIVE); UGLUCOSE NEGATIVE (NEGATIVE)
[2025-01-14 00:53] LABS: *BLOOD, URINE TRACE (NEGATIVE)
[2025-01-14] MEDS: IV NS 1000 ML 1,000 ML IV ONE (00:57)
[2025-01-14] MEDS ORDERED: HYDROMORPHONE 1 MG/1 ML DISP.SYRIN ONE (01:08)
[2025-01-14] MEDS ORDERED: PRED50TA PO (01:12)
[2025-01-14] MEDS ORDERED: HYDR-3980 PO (01:12)
[2025-01-14] MEDS: HYDROMORPHONE 1 MG/1 ML DISP.SYRIN IV ONE (01:14)
[2025-01-14 01:36] VITALS: BP 143/85; TEMP 99; O2SAT 100
[2025-01-14 01:52] LABS: SQUAMOUS EPITHELIAL CELL,UR FEW /HPF (NONE SEEN)
== END 2025-01-14 01:37 | disposition home or self-care (01) ==
LOC: ER 21:55
DX: K65.4 Sclerosing mesenteritis (principal); R19.7 Diarrhea, unspecified; R03.0 Elevated blood-pressure reading, without diagnosis of hypertension; G89.29 Other chronic pain; Z79.52 Long term (current) use of systemic steroids; Z88.1 Allergy status to other antibiotic agents; Z88.5 Allergy status to narcotic agent; Z88.7 Allergy status to serum and vaccine; Z90.49 Acquired absence of other specified parts of digestive tract; Z87.19 Personal history of other diseases of the digestive system
CPT/HCPCS: 99285; 74177; 96374; 96361 ×2; 80076; 80048; 83690; 85025; 86140; 36415; 81001; 96376; Q9967; J1171 ×2; J7040 ×2; A4663

== ENCOUNTER 2025-05-05 15:47 | Emergency (ER) | payer OTHER ==
[~2025-05-05] VITALS: Ht 188 cm; Wt 124.3 kg
[~2025-05-05 15:47] MED LIST changes: +PRED50TA PO
[2025-05-05 16:28] LABS: *BILIRUBIN,URIN NEGATIVE (NEGATIVE); *BLOOD, URINE NEGATIVE (NEGATIVE); *CLARITY,URINE CLEAR (CLEAR); *COLOR,URINE YELLOW (YELLOW); *KETONES,URINE NEGATIVE (NEGATIVE); *PROTEIN,URINE NEGATIVE (NEGATIVE); *UROBILINOGEN,URINE 0.2 E.U./dl (NORMAL); LEUKOCYTE ESTERASE ,URINE NEGATIVE (NEGATIVE); NITRITE, URINE NEGATIVE (NEGATIVE); UGLUCOSE NEGATIVE (NEGATIVE)
[2025-05-05] MEDS ORDERED: KETOROLAC TROMETHAMINE 15 MG INJ ONE (16:28)
[2025-05-05] MEDS: IV NORMAL SALINE 1000 ML BAG IV ONE (16:33)
[2025-05-05] MEDS: KETOROLAC TROMETHAMINE 15 MG INJ IVP ONE (16:34)
[2025-05-05 16:38] LABS: PLATELET COUNT (AUTO) 373 K/uL (152-348); RED BLOOD CELL COUNT(AUTO) 4.93 MIL/uL (4.06-5.63); RED CELL DISTRIBUTION WIDTH 14.6 % (12.1-16.2); WHITE BLOOD COUNT (AUTO) 12.0 K/uL (3.6-10.2)
[2025-05-05] MEDS ORDERED: HYDROMORPHONE 1 MG/1 ML DISP.SYRIN ONE ×2 (16:39→17:26)
[2025-05-05] MEDS: HYDROMORPHONE 1 MG/1 ML DISP.SYRIN IV ONE ×2 (16:46→17:32)
[2025-05-05 16:48] LABS: ASPARTATE AMINOTRANSFERASE 40 U/L (15-37); CREATININE 0.9 mg/dL (0.6-1.3); SODIUM SERUM 142 mmol/L (136-145); TOTAL PROTEIN, SERUM 7.9 g/dL (6.4-8.2); UREA NITROGEN, BLOOD 9 mg/dL (7-18)
[2025-05-05] MEDS ORDERED: ONDANSETRON 4 MG/2 ML VIAL ONE (16:50)
[2025-05-05] MEDS: ONDANSETRON 4 MG/2 ML VIAL IV ONE (16:53)
[2025-05-05] MEDS ORDERED: HYDROMORPHONE 1 MG/1 ML DISP.SYRIN IV ONE (17:30)
[2025-05-05 18:03] VITALS: BP 142/86
[2025-05-05] MEDS ORDERED: HYDR-3980 PO (18:47)
[2025-05-05 18:58] VITALS: BP 142/86; TEMP 98.8; O2SAT 98
== END 2025-05-05 18:58 | disposition home or self-care (01) ==
LOC: ER 15:53
DX: R10.9 Unspecified abdominal pain (principal); G89.29 Other chronic pain; K50.113 Crohn's disease of large intestine with fistula; K60.30 Anal fistula, unspecified; Z79.52 Long term (current) use of systemic steroids; Z86.72 Personal history of thrombophlebitis; Z88.1 Allergy status to other antibiotic agents; Z88.5 Allergy status to narcotic agent; Z88.7 Allergy status to serum and vaccine; Z90.49 Acquired absence of other specified parts of digestive tract
CPT/HCPCS: 99285; 96374; 76705; 96361; 96375; 80076; 80048; 81003; 83690; 85025; 36415; 96376; J1885; J2405; J1171 ×2; J7040; A4606; A4663

== ENCOUNTER 2025-06-13 00:58 | Emergency (ER) | payer OTHER ==
[~2025-06-13] VITALS: Ht 188 cm; Wt 122.5 kg
[~2025-06-13 00:58] MED LIST changes: +AMOX-319 PO; -AMOX-430 PO
[2025-06-13] MEDS ORDERED: ONDANSETRON ODT 4 MG TAB.RAPDIS ONE (01:45)
[2025-06-13] MEDS ORDERED: HYDROMORPHONE HCL 2 MG TABLET ONE (01:46)
[2025-06-13] MEDS: HYDROMORPHONE HCL 2 MG TABLET PO ONE (01:48)
[2025-06-13] MEDS: ONDANSETRON ODT 4 MG TAB.RAPDIS SL ONE (01:48)
[2025-06-13 01:52] LABS: PLATELET COUNT (AUTO) 369 K/uL (152-348); RED BLOOD CELL COUNT(AUTO) 4.80 MIL/uL (4.06-5.63); RED CELL DISTRIBUTION WIDTH 13.6 % (12.1-16.2); WHITE BLOOD COUNT (AUTO) 10.5 K/uL (3.6-10.2)
[2025-06-13 01:59] LABS: CREATININE 1.1 mg/dL (0.6-1.3); SODIUM SERUM 141 mmol/L (136-145); UREA NITROGEN, BLOOD 10 mg/dL (7-18)
[2025-06-13 02:04] LABS: ASPARTATE AMINOTRANSFERASE 38 U/L (15-37); TOTAL PROTEIN, SERUM 7.7 g/dL (6.4-8.2)
[2025-06-13] MEDS ORDERED: ONDA-243 PO (02:34)
[2025-06-13] MEDS ORDERED: HYDR2TAB7 PO (02:34)
[2025-06-13 02:49] VITALS: BP 135/82
[2025-06-13 02:51] VITALS: BP 135/87; TEMP 98; O2SAT 99
== END 2025-06-13 02:52 | disposition home or self-care (01) ==
LOC: ER 01:02
DX: K51.90 Ulcerative colitis, unspecified, without complications (principal); G89.29 Other chronic pain; Z79.52 Long term (current) use of systemic steroids; Z86.72 Personal history of thrombophlebitis; Z88.1 Allergy status to other antibiotic agents; Z88.5 Allergy status to narcotic agent; Z88.7 Allergy status to serum and vaccine; Z90.49 Acquired absence of other specified parts of digestive tract
CPT/HCPCS: 36415; 83690; 85025; A4606; A4663; Q0162